=== PATIENT | male | born 1965 | race Caucasian/White ===

== ENCOUNTER → 2016-12-11 | Outpatient (CLI) | payer OTHER ==
[2016-12-11 16:07] LABS: MEAN CORPUSCULAR HEMOGLOBIN 29.6 pg (27.0-33.0); MEAN CORPUSCULAR HGB CONC 35.1 g/dl (32.0-36.5); MEAN CORPUSCULAR VOLUME 84.3 fl (80.0-96.0); RED CELL DISTRIBUTION WIDTH 13.1 % (11.5-14.5); WHITE BLOOD COUNT 8.4 K/mm3 (4.0-10.0)
[2016-12-11 16:39] LABS: ALBUMIN 3.7 GM/DL (3.2-5.2); ALBUMIN/GLOBULIN RATIO 1.03 (1.00-1.93); ALKALINE PHOSPHATASE 76 U/L (45-117); ALT/SGPT 41 U/L (12-78); ANION GAP 10 MEQ/L (8-16); AST/SGOT 25 U/L (15-37); BILIRUBIN,TOTAL 0.5 MG/DL (0.2-1.0); BLOOD UREA NITROGEN 20 MG/DL (7-18); CALCIUM LEVEL 9.1 MG/DL (8.5-10.1); CARBON DIOXIDE LEVEL 28 MEQ/L (21-32); CHLORIDE LEVEL 97 MEQ/L (98-107); CHOLESTEROL LEVEL 115 MG/DL (<200); GLOMERULAR FILTRATION RATE > 60.0 (>60); GLUCOSE, FASTING 200 MG/DL (70-105); POTASSIUM SERUM 4.1 MEQ/L (3.5-5.1); SODIUM LEVEL 135 MEQ/L (136-145); TOTAL PROTEIN 7.3 GM/DL (6.4-8.2); TRIGLYCERIDES LEVEL 262 MG/DL (<150)
== END ==
LOC: M LAB 15:02
PROVIDERS: ATTEND Family Medicine
DX: I10 Essential (primary) hypertension (principal); R53.83 Other fatigue

== ENCOUNTER → 2017-02-20 | Outpatient (CLI) | payer OTHER | LOC: M LAB 08:25 | PROVIDERS: ATTEND Family Medicine | DX: R19.7 Diarrhea, unspecified (principal) ==

== ENCOUNTER → 2017-07-01 | Outpatient (CLI) | payer OTHER ==
--- NOTE | 2017-07-01 12:13 | REP ---
Clinical: Hypertension . Comparison: 05/21/2013 . Technique: PA and lateral. Findings: The mediastinum and cardiac silhouette are normal. The lung davis are clear and without acute consolidation, effusion, or pneumothorax. The skeletal structures are intact and normal. Impression: 1. No acute cardiopulmonary process. Signed by Walter Gann MD 07/01/2017 12:04 P
[2017-07-01 12:18] LABS: MEAN CORPUSCULAR HEMOGLOBIN 29.3 pg (27.0-33.0); MEAN CORPUSCULAR VOLUME 83.5 fl (80.0-96.0); PLATELET COUNT, AUTOMATED 278 10^3/uL (150-450); RED CELL DISTRIBUTION WIDTH 12.7 % (11.5-14.5); WHITE BLOOD COUNT 8.9 10^3/uL (4.0-10.0)
[2017-07-01 12:31] LABS: ALBUMIN 3.8 GM/DL (3.2-5.2); ALBUMIN/GLOBULIN RATIO 1.15 (1.00-1.93); ALKALINE PHOSPHATASE 73 U/L (45-117); ALT/SGPT 27 U/L (12-78); ANION GAP 9 MEQ/L (8-16); AST/SGOT 14 U/L (7-37); BILIRUBIN,TOTAL 0.5 MG/DL (0.2-1.0); BLOOD UREA NITROGEN 30 MG/DL (7-18); CALCIUM LEVEL 9.6 MG/DL (8.5-10.1); CARBON DIOXIDE LEVEL 28 MEQ/L (21-32); CHLORIDE LEVEL 102 MEQ/L (98-107); CHOLESTEROL LEVEL 126 MG/DL (<200); CREATININE FOR GFR 0.95 MG/DL (0.70-1.30); GLOMERULAR FILTRATION RATE > 60.0 (>56); GLUCOSE, FASTING 231 MG/DL (70-105); POTASSIUM SERUM 4.9 MEQ/L (3.5-5.1); SODIUM LEVEL 139 MEQ/L (136-145); TOTAL PROTEIN 7.1 GM/DL (6.4-8.2); TRIGLYCERIDES LEVEL 107 MG/DL (<150)
--- NOTE | 2017-07-01 14:31 | ECGEPIP ---
Stationary ECG Study [facility] Test Date: 2017-07-01 Pat Name: MILLA NI Department: Room: - Gender: M Vat House Supervisor: BROOKE : 1965 Requested By: Nikky Gibbons Order Number: [id number] Reading MD: Tessa Salazar Measurements Intervals [place] Rate: 68 P: 58 FL: 142 QRS: 12 QRSD: 86 T: 40 QT: 375 QTc: 399 Interpretive Statements SINUS RHYTHM BORDERLINE LOW VOLTAGE SIMILAR RO 05/21/13 Electronically Signed On 07-01-2017 14:31:28 EST by Tessa Salazar
== END ==
LOC: M LAB 11:22
PROVIDERS: ATTEND Family Medicine
DX: I10 Essential (primary) hypertension (principal); E11.9 Type 2 diabetes mellitus without complications; R53.83 Other fatigue

== ENCOUNTER → 2017-11-01 | Outpatient (CLI) | payer OTHER | LOC: M RAD 09:38 | DX: M79.601 Pain in right arm (principal) | CPT/HCPCS: 73060 ==

== ENCOUNTER → 2018-07-17 | Outpatient (CLI) | payer OTHER ==
[2018-07-17 12:03] LABS: HEMOGLOBIN A1c 12.2 %
== END ==
LOC: M LAB 10:31
PROVIDERS: ATTEND Family Medicine
DX: E11.9 Type 2 diabetes mellitus without complications (principal)

== ENCOUNTER → 2018-09-27 | Outpatient (CLI) | payer OTHER ==
[~2018-09-27] MED LIST: BYST10TA2; FARX1TAB3; LEVO175T2; LOSA100T50; METF10004; ROSU10TA5
[2018-09-27 10:31] LABS: HEMOGLOBIN A1c 10.4 %
== END ==
LOC: M LAB 08:28
PROVIDERS: ATTEND Family Medicine
DX: E11.9 Type 2 diabetes mellitus without complications (principal)

== ENCOUNTER 2018-09-30 11:37 | Emergency (ER) | payer OTHER ==
[~2018-09-30] VITALS: Ht 175.3 cm; Wt 84.5 kg
[2018-09-30] MEDS ORDERED: ROSU10TA5 (11:45)
[2018-09-30] MEDS ORDERED: LEVO175T2 (11:45)
[2018-09-30] MEDS ORDERED: FARX1TAB3 (11:45)
[2018-09-30] MEDS ORDERED: METF10004 (11:45)
[2018-09-30] MEDS ORDERED: BYST10TA2 (11:45)
[2018-09-30] MEDS ORDERED: LOSA100T50 (11:45)
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
[2018-09-30 14:02] VITALS: BP 128/88
== END 2018-09-30 14:03 | disposition home or self-care (01) ==
LOC: M ED 11:37
DX: S80.02XA Contusion of left knee, initial encounter (principal); S80.812A Abrasion, left lower leg, initial encounter; V44.5XXA Car driver injured in collision with heavy transport vehicle or bus in traffic accident, initial encounter; Y92.410 Unspecified street and highway as the place of occurrence of the external cause; E11.9 Type 2 diabetes mellitus without complications; Z86.73 Personal history of transient ischemic attack (TIA), and cerebral infarction without residual deficits; Z79.899 Other long term (current) drug therapy; Z79.84 Long term (current) use of oral hypoglycemic drugs

== ENCOUNTER → 2018-12-20 | Outpatient (CLI) | payer OTHER ==
[2018-12-20 11:33] LABS: HEMOGLOBIN A1c 8.9 %
== END ==
LOC: M LAB 08:55
PROVIDERS: ATTEND Family Medicine
DX: E11.9 Type 2 diabetes mellitus without complications (principal)

== ENCOUNTER → 2020-03-04 | Outpatient (CLI) | payer OTHER ==
[~2020-03-04] MED LIST changes: -ROSU10TA5; +ROSU10TA6
== END ==
LOC: M LAB 10:24
PROVIDERS: ATTEND Internal Medicine Endocrinology, Diabetes & Metabolism
DX: E11.65 Type 2 diabetes mellitus with hyperglycemia (principal)

== ENCOUNTER → 2020-03-04 | Outpatient (CLI) | payer OTHER ==
[2020-04-09 07:32] LABS: HEMATOCRIT 46.6 % (42.0-52.0); HEMOGLOBIN 15.2 g/dl (13.5-17.5); MEAN CORPUSCULAR HEMOGLOBIN 28.8 pg (27.0-33.0); MEAN CORPUSCULAR HGB CONC 32.6 g/dl (32.0-36.5); MEAN CORPUSCULAR VOLUME 88.3 fl (80.0-96.0); PLATELET COUNT, AUTOMATED 274 10^3/uL (150-450); RED BLOOD COUNT 5.28 10^6/uL (4.30-6.10); WHITE BLOOD COUNT 7.2 10^3/uL (4.0-10.0)
[2020-05-05 02:17] LABS: ALBUMIN 3.5 GM/DL (3.2-5.2); ALT/SGPT 35 U/L (12-78); BILIRUBIN,TOTAL 0.2 MG/DL (0.2-1.0); BLOOD UREA NITROGEN 28 MG/DL (7-18); CALCIUM LEVEL 9.6 MG/DL (8.5-10.1); CARBON DIOXIDE LEVEL 29 MEQ/L (21-32); CHLORIDE LEVEL 107 MEQ/L (98-107); GLOMERULAR FILTRATION RATE > 60.0 (>56); GLUCOSE, FASTING 127 MG/DL (70-100); SODIUM LEVEL 141 MEQ/L (136-145); TESTOSTERONE 500 NG/DL (241-827); THYROID STIMULATING HORMONE 0.338 uIU/ML (0.358-3.740); TOTAL 25(OH) VITAMIN D 15.7 NG/ML (30.0-100.0)
== END ==
LOC: M LAB 10:24
PROVIDERS: ATTEND Family Medicine
DX: E11.9 Type 2 diabetes mellitus without complications (principal); I10 Essential (primary) hypertension; R97.20 Elevated prostate specific antigen [PSA]; E03.9 Hypothyroidism, unspecified
CPT/HCPCS: 36415; 80053; 80061; 82306; 83036; 84403; 84443; 85027; G0103

== ENCOUNTER → 2020-06-17 | Outpatient (REF) | payer OTHER ==
[2020-06-17 18:37] LABS: CREATININE, URINE 48.4 MG/DL; MAU/CREAT RATIO 1014.4 MCG/MG (0.0-30.0)
== END ==
LOC: M LAB REF 17:08
PROVIDERS: ATTEND Internal Medicine Endocrinology, Diabetes & Metabolism
DX: E11.65 Type 2 diabetes mellitus with hyperglycemia (principal)

== ENCOUNTER → 2020-09-05 | Outpatient (CLI) | payer OTHER ==
[~2020-09-05] MED LIST changes: -BYST10TA2; +BYST10TA2 PO; -FARX1TAB3; +FARX1TAB3 PO; -LEVO175T2; +LEVO175T2 PO; -LOSA100T50; +LOSA100T50 PO; -METF10004; +METF10004 PO; +OZEM2INJ2 PO; +PIOG1TAB36 PO; +REPA1TAB4 PO; -ROSU10TA6; +ROSU10TA6 PO; +VITA50005 PO
== END ==
LOC: M LABSMTC 09:31
PROVIDERS: ATTEND Anesthesiology
DX: Z01.812 Encounter for preprocedural laboratory examination (principal); Z20.822 Contact with and (suspected) exposure to COVID-19

== ENCOUNTER 2020-09-09 06:42 | Day surgery (SDC) | payer OTHER ==
[~2020-09-09] VITALS: Ht 175.3 cm; Wt 88.8 kg
--- OUTSIDE RECORDS SUMMARY | 2020-09-09 06:47 | CCD | Continuity of Care Document ---
Author Author Boris DELGADO MD Organization Unknown Address [address] [place] [address], [facility] [address] [place] [address] Phone [phone] Care Team Providers Care Fiberglass Technician Name Role Phone Shai Paige MD [facility] [phone] Problems Active Problems Provider Date Essential hypertension Onset: 10/22/2018 Social History Type Date Description Comments Sex Unknown Tobacco Use Start: Unknown Never Smoked Cigarettes ETOH Use Rarely consumes alcohol Tobacco Use Start: Unknown Patient has never smoked Smoking Status Reviewed: 03/11/20 Patient has never smoked Allergies, Adverse Reactions, Alerts Description No Information Available Medications Active Medications SIG Qnty Indications Ordering Provide r Date Repaglinide 1mg Tablets take 1 tablets by mouth once daily with breakfast 90tabs E11.65 Esmer Delgado MD 06/17/2020 Pioglitazone HCL 15mg Tablets 1 by mouth every day- due January 90tabs E11.65 Esmer Delgado MD 05/15/20 19 Ozempic (1 MG/Dose) 2mg/1.5ML Solution Pen-Inject Inject 1MG Weekly Under The Skin 3units E11.65 Esmer Delgado MD 05/15/2019 Freestyle Jatin 14 Day/[place]/Flash Antonia toring System Device use to test blood sugars daily 1units E11.65 Esmer Delgado MD 01/26/2019 Freestyle Jatin 14 Day/Sensor/Flash Antonia toring System Misc use as directed every 14 day 6units E11.65 Esmer Delgado MD 01/26/2019 Metformin HCL ER 500mg Tablets ER 24HR 4 tab by mouth daily 360tabs Esmer Delgado MD 9 Rosuvastatin Calcium 10mg Tablets 1 by mouth every day Unknown Bystolic 10mg Tablets 1 po qd Unknown Naproxen Sodium 550mg Tablets 1 by mouth twice a day with food prn Unknown Levothyroxine Sodium 175mcg Tablet s take 1 tab by mouth daily. Unknown Losartan Potassium 100mg Tablets 1 by mouth every day Unknown Farxiga 10mg Tablets take one tablet by mouth every day 90tabs E11.65 Mayte Del Valle, ALEN Stomach Relief 262mg Chewtabs prn Unknown Diphenoxylate-Atropine 2.5-0.025mg Tablets 1 po bid prn Unknown Sucralfate 1gm Tablets Take One Tablet By Mouth Three Times A Day, prn Unknown Immunizations Description No Information Available Vital Signs Date Vital Result Comment 06/17/2020 2:41pm BP Systolic 126 mmHg BP Diastolic 70 mmHg Heart Rate 80 /min Body Temperature 97.1 F Height 68.9 inches 5'8.90" Weight 195.00 lb BMI (Body Mass Index) 28.9 kg/m2 O2 % BldC Oximetry 99 % 03/11/2020 3:08pm BP Systolic 132 mmHg BP Diastolic 80 mmHg Heart Rate 85 /min Height 68.9 inches 5'8.90" Weight 192.12 lb BMI (Body Mass Index) 28.5 kg/m2 O2 % BldC Oximetry 97 % Results Test Acquired Date Facility Test Result H/L Range Note Laboratory test finding 06/17/2020 In House Glucose 141 Hemoglobin A1c 7.5 Laboratory test finding 03/11/2020 In House Hemoglobin A1c 7.6 Glucose 177 Urine Micro/Creat Ratio Random 03/04/2020 [facility] [address] [place] [address] (315)- - Creatinine, Urine TNP mg/dL Normal Malb Urine Siemens 986.0 mg/L Normal [place]/Creat Ratio TNP MCG/MG Normal 0.0-30.0 Complete Blood Count 03/04/2020 [facility] entr [address] [place] [address] (315)- - White Blood Count 7.2 10 Normal 4.0-10.0 Red Blood Count 5.28 10 Normal 4.30-6.10 Hemoglobin 15.2 g/dL Normal 13.5-17.5 Hematocrit 46.6 % Normal 42.0-52.0 Mean Corpuscular Volume 88.3 fl Normal 80.0-96.0 Mean Corpuscular Hemoglobin 28.8 pg Normal 27.0-33.0 Mean Corpuscular HGB Conc 32.6 g/dL Normal 32.0-36.5 Red Cell Distribution Width 13.3 % Normal 11.5-14.5 Platelet Count, Automated 274 10 Normal 150-450 Nucleated Red Blood Cell % 0.0 % Normal 0-0 Hemoglobin A1c 03/04/2020 [facility] ntr [address] [place] [address] (315)- - Hemoglobin A1c TNP % Normal 1 Estimated Average Glucose TNP mg/dL Normal 60-110 Comprehensive Metabolic Profil 03/04/2020 [facility] [address] [place] [address] (315)- - Glucose, Fasting 127 mg/dL High 70-100 Blood Urea Nitrogen 28 mg/dL High 7-18 Creatinine For GFR 1.00 mg/dL Normal 0.70-1.30 Glomerular Filtration Rate > 60.0 Normal >56 2 Sodium Level 141 mEq/L Normal 136-145 Potassium Serum 5.0 mEq/L Normal 3.5-5.1 Chloride Level 107 mEq/L Normal 98-107 Carbon Dioxide Level 29 mEq/L Normal 21-32 Anion Gap 5 mEq/L Low 8-16 Calcium Level 9.6 mg/dL Normal 8.5-10.1 Ast/Sgot 18 U/L Normal 7-37 Alt/SGPT 35 U/L Normal 12-78 Alkaline Phosphatase 71 U/L Normal 45-117 Bilirubin,Total 0.2 mg/dL Normal 0.2-1.0 Total Protein 7.0 GM/DL Normal 6.4-8.2 Albumin 3.5 GM/DL Normal 3.2-5.2 Albumin/Globulin Ratio 1.0 Normal Lipid Panel 03/04/2020 [facility] n[facility] [address] [place] [address] (315)- - Triglycerides Level TNP mg/dL Normal <150 Cholesterol Level TNP mg/dL Normal <200 HDL Cholesterol TNP mg/dL Normal >40 LDL Cholesterol TNP mg/dL Normal <100 Non-HDL-C TNP mg/dL Normal Cholesterol Risk Ratio TNP Normal <5 Laboratory test finding 03/04/2020 [facility] l Cent[facility] [address] [place] [address] (315)- - Testosterone 500 ng/dL Normal 241-827 3 PSA Screening 0.59 NG/ML Normal < 4.00 4 Thyroid Stimulating Hormone 0.338 uIU/ML Low 0.358-3.740 5 Total 25(Oh) Vitamin D 15.7 NG/ML Low 30.0-100.0 6 1 DOWNTIME - NOT PERFORMED 2 Units are mL/min/1.73 m2 Chronic Kidney Disease Staging per NKF: Stage I & II GFR >=60 Normal to Mildly Decreased Stage III GFR 30-59 Moderately Decreased Stage IV GFR 15-29 Severely Decreased Stage V GFR <15 Very Little GFR Left ESRD GFR <15 on REPRODUCTION MACHINE LOADER 3 NORMAL RANGES ARE FOR ADULT FEMALES (OVER 15 YRS) AND MALES (OVER 19 YRS). FOR PEDIATRIC RANGES PLE ASE CONSULT LITERATURE. 4 The PSA assay is performed o n the Siemens [place] analyzer by LOCI sandwich chemiluminescent immunoassay and should not be compared interchangeably with other methods. It should not be used alone as a screening test or diagnosis for the presence or absence of malignant disease. Predictions of disease recurrence should not be based solely on values obtained from serial patient serum values. 5 note:<nlbl:demographic_chang ed> 6 note:<nlbl:demographic_chang ed> Procedures Date Code Description Status 06/17/2020 492399977 Diabetic Foot Exam Completed 03/11/2020 97222 Amb Glucose Monitoring Interpret ation And Report Completed Medical Devices Description No Information Available Encounters Type Date Location Provider Dx Diagnosis Office Visit 03/11/2020 3:15p DR. Esmer Del Valle NP E1 1.65 Type 2 diabetes mellitus with hyperglycemia Assessments Date Code Description Provider 06/17/2020 E11.65 Type 2 diabetes mellitus with hy perglycemia Esmer Delgado MD 03/11/2020 E11.65 Type 2 diabetes mellitus with hy perglycemia Mayte Del Valle NP Plan of Treatment Future Appointment(s):* 09/26/2020 11:45 am - Esmer Delgado MD at DR. Esmer Delgado 06/17/2020 - Esmer Delgado MD* E11.65 Type 2 diabetes mellitus with hyperglycemia* New Medication:* Repaglinide 1 mg - take 1 tablets by mouth once daily with breakfast * New Labs:* Urine Micro/Creat Ratio Random, Scheduled: 06/17/20 * Comments:* 06/17/2020- in office A1c= 7.5% bs=7.6% (7.4%, 8% 8.4%, 8.9%, 10.4%, 12%)Random HN=175ix bs is spiking a lot++yesterday i had cereal and fruit and BS went to 300Freestyle jatin CGM downloaded: 71% target, 27% high, 46% active wear, Ave glucoseData started 02/08/2020Patient wants to avoid insulin so he does not require a driving waiver.Current medication: Metformin ER 500 2 tabs po bid, Farxiga 10 mg daily, Ozempic 1.0 mg, Pioglitazone 15 mgNext step would be to try insulin or sulfonylurea. However he has had diabetes for over 20 years. He is concerned about a DOT waiver. Pt wishes not to start any new medication. Pt feels that he could do better with his diet. Pt had been experiencing abdominal pain prior to and after bowel movement for past 2 years- states this has subsided- due for Colonosopy aug 11.Also has experienced diarrhea.- that went away No med changes for now. Will recheck in 3 months * Follow up:* 3 months CBF - survey Functional Status Description No Information Available Mental Status Description No Information Available Referrals Description No Information Available
--- OUTSIDE RECORDS SUMMARY | 2020-09-09 06:47 | CCD | Continuity of Care Document ---
Author Author Sotero HUTNER M.D. Organization Unknown Address [address] [place] [address] Phone [phone] Care Team Providers Care Forge Operator Helper Name Role Phone Shai Paige M.D. AUTM [phone] Problems Active Problems Provider Date Screening for malignant neoplasm of colon Chilo masters M.D. Onset: 08/11/2020 Social History Type Date Description Comments Sex Unknown ETOH Use Denies alcohol use Tobacco Use Start: Unknown Patient has never smoked Allergies, Adverse Reactions, Alerts Description No Known Drug Allergies Medications Active Medications SIG Qnty Indications Ordering Provide r Date Sutab [id number] Tablets as directed 1box Chilo Hunter M.D. 08/11/2020 Farxiga 10mg Tablets Take One Tablet By Mouth Every Day Maximum Daily Dose 1 Tablet Un known Metformin HCL ER 500mg Tablets ER 24HR Take Four Tablets By Mouth Every Day Unknown Bystolic 10mg Tablets Take One Tablet By Mouth Every Day Unknown Ozempic (1 MG/Dose) 2mg/1.5ML Solution Pen-Inject Inject 1MG Subcutaneously Once A Week Unk nown Repaglinide 1mg Tablets Take One Tablet By Mouth Every Day With Breakfast Maximum Daily Dose One Tablet Unknown Vitamin D (Ergocalciferol) 1.25mg (14307 Ut) Capsules Take 1 Capsule By Mouth Once A Week Unkno wn Rosuvastatin Calcium 10mg Tablets Take One Tablet By Mouth Every Day Unknown Losartan Potassium 100mg Tablets Take One Tablet By Mouth Every Day Unknown Levothyroxine Sodium 175mcg Tablet s Take One Tablet By Mouth Every Day Unknown Pioglitazone HCL 15mg Tablets Take One Tablet By Mouth Every Day Unknown Immunizations Description No Information Available Vital Signs Date Vital Result Comment 08/11/2020 10:29am Height 69 inches 5'9" Weight 196.00 lb BP Systolic 126 mmHg BP Diastolic 87 mmHg Heart Rate 58 /min BMI (Body Mass Index) 28.9 kg/m2 Weight 88.906 kg Body Temperature 97.3 F Results Description No Information Available Procedures Description No Information Available Medical Devices Description No Information Available Encounters Type Date Location Provider Dx Diagnosis Office Visit 08/11/2020 10:00a Main Office Chilo Hunter M.D. Z 12.11 Encounter for screening for malignant neoplasm of colon Assessments Date Code Description Provider 08/11/2020 Z12.11 Encounter for screening for kourtney gnant neoplasm of colon Chilo Hunter M.D. Plan of Treatment Future Appointment(s):* 09/02/2020 6:00 am - Christine at Main Office * 09/09/2020 8:15 am - Chilo Hunter M.D. at Main Office 08/11/2020 - Chilo Hunter M.D.* Z12.11 Encounter for screening for malignant neoplasm of colon* Comments:* 55 yo wm who presents for a screening colonoscopy. No c/o abdominal pain, weight loss, change in bowel habits, or rectal bleeding. No family h/o colon cancer. No h/o chest pain, or sob. Plan:1.Schedule patient for a colonoscopy.2.Informed consent given to the patient.3.Pt. advised to stop aspirin,plavix, and anticoagulants at least 3 to 7 days prior to the procedure. Functional Status Description No Information Available Mental Status Description No Information Available Referrals Description No Information Available
--- OUTSIDE RECORDS SUMMARY | 2020-09-09 06:47 | CCD ---
Continuity of Care Document (CCD) Created on: 06/21/2020 Agusto Boris External Reference #: [id number] : 1965 Sex: Male Author Author Boris DELGADO MD Organization Unknown Address [address] [place] [address], [facility] [address] [place] [address] Phone [phone] Care Team Providers Care Electronic Prepress Technician Name Role Phone Shai Paige MD [facility] [phone] Problems Active Problems Provider Date Essential hypertension [...] Tablets 1 by mouth every day- due january 90tabs E11.65 Esmer Delgado MD 05/15/20 19 Ozempic (1 MG/Dose) 2mg/1.5ML Solution Pen-Inject inject 1mg weekly under the skin 3units E11.65 Esmer Delgado MD 05/15/2019 Freestyle Jatin 14 Day/[place]/Flash Antonia toring System Device use to test [...] Date Facility Test Result H/L Range Note Urine Micro/Creat Ratio Random 06/17/[address] [address] (315)- - Creatinine, Urine 48.4 mg/dL Normal Malb Urine Siemens 491.0 mg/L Normal [place]/Creat Ratio 1014.4 MCG/MG High 0.0-30.0 1 Laboratory test finding 06/17/2020 In House Glucose 141 Hemoglobin A1c 7.5 Laboratory test finding 03/11/2020 In House Hemoglobin A1c 7.6 Glucose 177 Urine Micro/Creat Ratio Random 03/04/[address] [address] (315)- - Creatinine, Urine TNP mg/dL Normal Malb Urine Siemens 986.0 mg/L Normal [place]/Creat Ratio TNP MCG/MG Normal 0.0-30.0 Complete Blood Count 03/04/2020 [facility] entr [address] [place] [address] (315)- - White Blood Count 7.2 10 [...] 0.0 % Normal 0-0 Hemoglobin A1c 03/04/2020 [facility] ntr [address] [place] [address] (315)- - Hemoglobin A1c TNP % Normal 2 Estimated Average Glucose TNP mg/dL Normal 60-110 Comprehensive Metabolic Profil 03/04/2020 [facility] [address] [place] [address] (315)- - Glucose, Fasting 127 mg/dL High 70-100 Blood Urea Nitrogen 28 mg/dL High 7-18 Creatinine For GFR 1.00 mg/dL Normal 0.70-1.30 Glomerular Filtration Rate > 60.0 Normal >56 3 Sodium Level 141 mEq/L Normal 136-145 Potassium [...] Albumin/Globulin Ratio 1.0 Normal Lipid Panel 03/04/2020 [facility] ntr [address] [place] [address] (315)- - Triglycerides Level TNP mg/dL Normal <150 Cholesterol Level TNP mg/dL Normal <200 HDL Cholesterol TNP mg/dL Normal >40 LDL Cholesterol TNP mg/dL Normal <100 Non-HDL-C TNP mg/dL Normal Cholesterol Risk Ratio TNP Normal <5 Laboratory test finding 03/04/2020 [facility] Cent[facility] [address] [place] [address] (315)- - Testosterone 500 ng/dL Normal 241-827 4 PSA Screening 0.59 NG/ML Normal < 4.00 5 Thyroid Stimulating Hormone 0.338 uIU/ML Low 0.358-3.740 6 Total 25(Oh) Vitamin D 15.7 NG/ML Low 30.0-100.0 7 1 THE [place] DIABETES ASSOCI ATION STATES THAT MICROALBUMINURIA IS PRESENT IF THE MICROALBUMIN/CREATININE RATIO EXCEEDS 30 MCG/MG. THE THRESHOLD FOR CLINICAL ALBUMINURIA IS REACHED AT 300 MCG/MG. THE CLASSIFICATION OF A PATIENT SHOULD BE BASED UPON AT LEAST 2 OF 3 ABNORMAL RESULTS ON SPECIMENS COLLECTED WITHIN A 3 TO 6 MONTH TIME FRAME. 2 DOWNTIME - NOT PERFORMED 3 Units are mL/min/1.73 m2 Chronic Kidney Disease Staging per NKF: Stage I & II GFR >=60 Normal to Mildly Decreased Stage III GFR 30-59 Moderately Decreased Stage IV GFR 15-29 Severely Decreased Stage V GFR <15 Very Little GFR Left ESRD GFR <15 on PRODUCT MARKETING SPECIALIST 4 NORMAL RANGES ARE FOR ADULT FEMALES (OVER 15 YRS) AND MALES (OVER 19 YRS). FOR PEDIATRIC RANGES PLE ASE CONSULT LITERATURE. 5 The PSA assay is performed o n the Siemens [place] analyzer by LOCI sandwich chemiluminescent immunoassay and should not be compared interchangeably with other methods. It should not be used alone as a screening test or diagnosis for the presence or absence of malignant disease. Predictions of disease recurrence should not be based solely on values obtained from serial patient serum values. 6 note:<nlbl:demographic_chang ed> 7 note:<nlbl:demographic_chang ed> Procedures Date Code Description Status 06/17/2020 [id number] Diabetic Foot Exam Completed 03/11/2020 98147 Amb Glucose Monitoring Interpret ation And Report Completed Medical Devices Description No Information Available Encounters Type Date Location Provider Dx Diagnosis Office Visit 06/17/2020 2:30p DR. Esmer Delgado MD E 11.65 Type 2 diabetes mellitus with hyperglycemia Office Visit 03/11/2020 3:15p DR. 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,.Patient wants to avoid insulin so he does not require a driving waiver.Current medication: Metformin ER 500 2 tabs po bid, Farxiga 10 mg daily, Ozempic 1.0 mg, Pioglitazone 15 mgREC- start low dose repaglenide- low potential for hypoglycemia Pt had been experiencing abdominal pain prior to and after bowel movement for past 2 years- states this has subsided- due for Colonosopy aug 11.Also has experienced diarrhea.- that went away * Follow up:* 3 months CBF - survey Functional Status Description No Information Available Mental Status Description No Information Available Referrals Description No Information Available
--- OUTSIDE RECORDS SUMMARY | 2020-09-09 06:47 | CCD | Continuity of Care Document ---
Author Author Boris DELGADO MD Organization Unknown Address [address] [place] [address], [facility] [address] [place] [address] Phone [phone] Care Team Providers Care Transitional Nurse Name Role Phone Shai Paige MD [facility] [phone] Problems Active Problems Provider Date Essential hypertension [...] Esmer Delgado MD 05/15/2019 Freestyle Jatin 14 Day/[place]/Flash Antonia toring System Device use to test [...] Range Note Urine Micro/Creat Ratio Random 06/17/[address] [address] (315)- - Creatinine, Urine 48.4 mg/dL Normal Malb Urine Siemens 491.0 mg/L Normal [place]/Creat Ratio 1014.4 MCG/MG High 0.0-30.0 1 Laboratory test finding 06/17/2020 In House Glucose 141 Hemoglobin A1c 7.5 Laboratory test finding 03/11/2020 In House Hemoglobin A1c 7.6 Glucose 177 Urine Micro/Creat Ratio Random 03/04/[address] [address] (315)- - Creatinine, Urine TNP mg/dL Normal Malb Urine Siemens 986.0 mg/L Normal [place]/Creat Ratio TNP MCG/MG Normal 0.0-30.0 Complete Blood Count 03/04/2020 [facility] entr [address] [place] [address] (315)- - White Blood Count 7.2 10 [...] 0.0 % Normal 0-0 Hemoglobin A1c 03/04/2020 [facility] ntr [address] [place] [address] (315)- - Hemoglobin A1c TNP % Normal 2 Estimated Average Glucose TNP mg/dL Normal 60-110 Comprehensive Metabolic Profil 03/04/2020 [facility] [address] [place] [address] (315)- - Glucose, Fasting 127 mg/dL High [...] Albumin/Globulin Ratio 1.0 Normal Lipid Panel 03/04/2020 [facility] ntr [address] [place] [address] (315)- - Triglycerides Level TNP mg/dL Normal <150 Cholesterol Level TNP mg/dL Normal <200 HDL Cholesterol TNP mg/dL Normal >40 LDL Cholesterol TNP mg/dL Normal <100 Non-HDL-C TNP mg/dL Normal Cholesterol Risk Ratio TNP Normal <5 Laboratory test finding 03/04/2020 [facility] l Centr [address] [place] [address] (315)- - Testosterone 500 ng/dL Normal 241-827 4 PSA Screening 0.59 NG/ML Normal < 4.00 5 Thyroid Stimulating Hormone 0.338 uIU/ML Low 0.358-3.740 6 Total 25(Oh) Vitamin D 15.7 NG/ML Low 30.0-100.0 7 1 THE [place] DIABETES ASSOCI ATION STATES THAT MICROALBUMINURIA IS [...] Little GFR Left ESRD GFR <15 on CAR FERRY MASTER 4 NORMAL RANGES ARE FOR ADULT FEMALES (OVER 15 YRS) AND MALES (OVER 19 YRS). FOR PEDIATRIC RANGES PLE ASE CONSULT LITERATURE. 5 The PSA assay is performed o n the Siemens [place] analyzer by LOCI sandwich chemiluminescent immunoassay and [...] ed> Procedures Date Code Description Status 06/17/2020 [id number] Diabetic Foot Exam Completed 03/11/2020 02312 Amb Glucose Monitoring Interpret ation And Report Completed Medical Devices Description No Information Available Encounters Type Date Location Provider Dx Diagnosis Office Visit 03/11/2020 3:15p DR. 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
--- OUTSIDE RECORDS SUMMARY | 2020-09-09 06:47 | CCD | Continuity of Care Document ---
Author Author Sotero HUNTER M.D. Organization Unknown Address [address] [place] [address] Phone [phone] Care Team Providers Care Sales Contractor Name Role Phone Shai Paige M.D. AUTM [phone] Problems Active Problems Provider Date Screening for malignant neoplasm of colon Chilo masters M.D. Onset: 08/11/2020 Social History Type Date Description Comments Sex Unknown ETOH Use Denies alcohol use Tobacco Use Start: Unknown Patient has never smoked Allergies, Adverse Reactions, Alerts Description No Known Drug Allergies Medications Active Medications SIG Qnty Indications Ordering Provide r Date Sutab [id number] Tablets as directed 1box Chilo Hunter M.D. [...] One Tablet Unknown Vitamin D (Ergocalciferol) 1.25mg (87743 Ut) Capsules Take 1 Capsule By Mouth [...] Medical Devices Description No Information Available Encounters Description No Information Available Assessments Date Code Description Provider 08/11/2020 Z12.11 [...]
--- OUTSIDE RECORDS SUMMARY | 2020-09-09 06:47 | CCD | Continuity of Care Document ---
Author Author Boris DELGADO MD Organization Unknown Address [address] [place] [address], [facility] [address] [place] [address] Phone [phone] Care Team Providers Care Heating Equipment Installer Name Role Phone Shai Paige MD [facility] [phone] Problems Active Problems Provider Date Essential hypertension [...] Esmer Delgado MD 05/15/2019 Fre[facility] Jatin 14 Day/[place]/Flash Antonia toring System Device use to test [...] Glucose 177 Urine Micro/Creat Ratio Random 03/04/2020 [facility] [address] [place] [address] (315)- - Creatinine, Urine TNP mg/dL Normal Malb Urine Siemens 986.0 mg/L Normal [place]/Creat Ratio TNP MCG/MG Normal 0.0-30.0 Complete Blood Count 03/04/2020 [facility] entr [address] [place] [address] (315)- - White Blood Count 7.2 10 [...] 0.0 % Normal 0-0 Hemoglobin A1c 03/04/2020 [facility] ntr [address] [place] [address] (315)- - Hemoglobin A1c TNP % Normal 1 Estimated Average Glucose TNP mg/dL Normal 60-110 Comprehensive Metabolic Profil 03/04/2020 [facility] [address] [place] [address] (315)- - Glucose, Fasting 127 mg/dL High [...] Albumin/Globulin Ratio 1.0 Normal Lipid Panel 03/04/2020 [facility] n[facility] [address] [place] [address] (315)- - Triglycerides Level TNP mg/dL Normal <150 Cholesterol Level TNP mg/dL Normal <200 HDL Cholesterol TNP mg/dL Normal >40 LDL Cholesterol TNP mg/dL Normal <100 Non-HDL-C TNP mg/dL Normal Cholesterol Risk Ratio TNP Normal <5 Laboratory test finding 03/04/2020 [facility] [address] [place] [address] (315)- - Testosterone 500 ng/dL Normal 241-827 [...] Little GFR Left ESRD GFR <15 on UI APPLICATION DEVELOPER 3 NORMAL RANGES ARE FOR ADULT FEMALES (OVER 15 YRS) AND MALES (OVER 19 YRS). FOR PEDIATRIC RANGES PLE ASE CONSULT LITERATURE. 4 The PSA assay is performed o n the Siemens Essie analyzer by LOCI sandwich chemiluminescent immunoassay and [...] ed> Procedures Date Code Description Status 06/17/2020 [id number] Diabetic Foot Exam Completed 03/11/2020 52630 Amb Glucose Monitoring Interpret ation And Report [...] bs=7.6% (7.4%, 8% 8.4%, 8.9%, 10.4%, 12%)Random JR=266hb bs is spiking a lot++yesterday i had [...]
--- OUTSIDE RECORDS SUMMARY | 2020-09-09 06:48 | CCD ---
Author Author [facility] Organization [facility] Address Unknown Phone Unavailable Care Team Providers Care Camp Coordinator Name Role Phone Sima Hunter MD Unavailable Unavailable Sima Hunter MD Unavailable Unavailable Sima Hunter MD Unavailable Unavailable Sima Hnuter MD Unavailable Unavailable Sima Hunter MD Unavailable Unavailable Sima Hunter MD Unavailable Unavailable Sima Hunter MD Unavailable Unavailable Sima Hunter MD Unavailable Unavailable Sima Hunter MD Unavailable Unavailable Sima Hunter MD Unavailable Unavailable Sima Hunter MD Unavailable Unavailable Sima Hunter MD Unavailable Unavailable Sima Hunter MD Unavailable Unavailable Sima Hunter MD Unavailable Unavailable Sima Hunter MD Unavailable Unavailable Sima Hunter MD Unavailable Unavailable Sima Hunter MD Unavailable Unavailable Sima Hunter MD Unavailable Unavailable Sima Hunter MD Unavailable Unavailable Sima Hunter MD Unavailable Unavailable Sima Hunter MD Unavailable Unavailable Sima Hunter MD Unavailable Unavailable Sima Hunter MD Unavailable Unavailable Sima Hunter MD Unavailable Unavailable Sima Hunter MD Unavailable Unavailable Sima Hunter MD Unavailable Unavailable Sima Hunter MD Unavailable Unavailable Sima Hunter MD Unavailable Unavailable Sima Hunter MD Unavailable Unavailable Sima Hunter MD Unavailable Unavailable Sima Hunter MD Unavailable Unavailable Sima Hunter MD Unavailable Unavailable Sima Hunter MD Unavailable Unavailable Sima Hunter MD Unavailable Unavailable Sima Hunter MD Unavailable Unavailable Sima Hunter MD Unavailable Unavailable Sima Hunter MD Unavailable Unavailable Sima Hunter MD Unavailable Unavailable Sima Hunter MD Unavailable Unavailable Sima Hunter MD Unavailable Unavailable Sima Hunter MD Unavailable Unavailable Sima Hunter MD Unavailable Unavailable Sima Hunter MD Unavailable Unavailable Sima Hunter MD Unavailable Unavailable Sima Hunter MD Unavailable Unavailable Sima Hunter MD Unavailable Unavailable Sima Hunter MD Unavailable Unavailable Sima Hunter MD Unavailable Unavailable Sima Hunter MD Unavailable Unavailable Delta Delgado MD Unavailable Unavailable Delta Delgado MD Unavailable Unavailable Delta Delgado MD Unavailable Unavailable Delta Delgado MD Unavailable Unavailable Delta Delgado MD Unavailable Unavailable Delta Delgado MD Unavailable Unavailable Delta Delgado MD Unavailable Unavailable Delta Delgado MD Unavailable Unavailable Delta Delgado MD Unavailable Unavailable Delta Delgado MD Unavailable Unavailable Delta Delgado MD Unavailable Unavailable Delta Delgado MD Unavailable Unavailable Delta Delgado MD Unavailable Unavailable Delta Delgado MD Unavailable Unavailable Delta Delgado MD Unavailable Unavailable Delta Delgado MD Unavailable Unavailable Delta Delgado MD Unavailable Unavailable Delta Delgado MD Unavailable Unavailable Delta Delgado MD Unavailable Unavailable Delta Delgado MD Unavailable Unavailable Delta Delgado MD Unavailable Unavailable Delta Delgado MD Unavailable Unavailable Delta Delgado MD Unavailable Unavailable Delta Delgado MD Unavailable Unavailable Delta Delgado MD Unavailable Unavailable Delta Delgado MD Unavailable Unavailable Delta Delgado MD Unavailable Unavailable Delta Delgado MD Unavailable Unavailable Delta Delgado MD Unavailable Unavailable Delta Delgado MD Unavailable Unavailable Fish, B Esmer GEIGER Unavailable Unavailable Fish, B Esmer GEIGER Unavailable Unavailable Fish, B Esmer GEIGER Unavailable Unavailable Fish, B Esmer GEIGER Unavailable Unavailable Fish, B Esmer GEIGER Unavailable Unavailable Fish, B Esmer GEIGER Unavailable Unavailable Fish, B Esmer GEIGER Unavailable Unavailable Fish, B Esmer GEIGER Unavailable Unavailable Fish, B Esmer GEIGER Unavailable Unavailable Fish, B Esmer GEIGER Unavailable Unavailable Fish, B Esmer GEIGER Unavailable Unavailable Fish, B Esmer GEIGER Unavailable Unavailable Fish, B Esmer GEIGER Unavailable Unavailable Fish, B Esmer GEIGER Unavailable Unavailable Fish, B Esmer GEIGER Unavailable Unavailable Fish, B Esmer GEIGER Unavailable Unavailable Fish, B Esmer GEIGER Unavailable Unavailable Fish, B Esmer GEIGER Unavailable Unavailable Fish, B Esmer GEIGER Unavailable Unavailable Fish, B Esmer GEIGER Unavailable Unavailable Fish, B Esmer GEIGER Unavailable Unavailable Fish, B Esmer GEIGER Unavailable Unavailable Fish, B Esmer GEIGER Unavailable Unavailable Fish, B Esmer GEIGER Unavailable Unavailable Fish, B Esmer GEIGER Unavailable Unavailable Fish, B Esmer GEIGER Unavailable Unavailable Fish, B Esmer GEIGER Unavailable Unavailable Fish, B Esmer GEIGER Unavailable Unavailable Fish, B Esmer GEIGER Unavailable Unavailable Fish, B Esmer GEIGER Unavailable Unavailable Fish, B Esmer GEIGER Unavailable Unavailable Fish, B Esmer GEIGER Unavailable Unavailable Fish, B Esmer GEIGER Unavailable Unavailable Fish, B Esmer GEIGER Unavailable Unavailable COOK, B MORGAN HOOP MAKER MACHINE Unavailable Unavailable COOK, B MORGAN HOOP MAKER MACHINE Unavailable Unavailable COOK, B MORGAN HOOP MAKER MACHINE Unavailable Unavailable COOK, B MORGAN HOOP MAKER MACHINE Unavailable Unavailable COOK, B MORGAN HOOP MAKER MACHINE Unavailable Unavailable COOK, B MORGAN HOOP MAKER MACHINE Unavailable Unavailable COOK, B MORGAN HOOP MAKER MACHINE Unavailable Unavailable COOK, B MORGAN HOOP MAKER MACHINE Unavailable Unavailable COOK, B MORGAN HOOP MAKER MACHINE Unavailable Unavailable COOK, B MORGAN HOOP MAKER MACHINE Unavailable Unavailable COOK, B MORGAN HOOP MAKER MACHINE Unavailable Unavailable COOK, B MORGAN HOOP MAKER MACHINE Unavailable Unavailable COOK, B MORGAN HOOP MAKER MACHINE Unavailable Unavailable COOK, B MORGAN HOOP MAKER MACHINE Unavailable Unavailable COOK, B MORGAN HOOP MAKER MACHINE Unavailable Unavailable COOK, B MORGAN HOOP MAKER MACHINE Unavailable Unavailable COOK, B MORGAN HOOP MAKER MACHINE Unavailable Unavailable COOK, B MORGAN HOOP MAKER MACHINE Unavailable Unavailable COOK, B MORGAN HOOP MAKER MACHINE Unavailable Unavailable COOK, B MORGAN HOOP MAKER MACHINE Unavailable Unavailable COOK, B MORGAN HOOP MAKER MACHINE Unavailable Unavailable COOK, B MORGAN HOOP MAKER MACHINE Unavailable Unavailable COOK, B MORGAN HOOP MAKER MACHINE Unavailable Unavailable COOK, B MORGAN HOOP MAKER MACHINE Unavailable Unavailable COOK, B MORGAN HOOP MAKER MACHINE Unavailable Unavailable COOK, B MORGAN HOOP MAKER MACHINE Unavailable Unavailable COOK, B MORGAN HOOP MAKER MACHINE Unavailable Unavailable COOK, B MORGAN HOOP MAKER MACHINE Unavailable Unavailable COOK, B MORGAN HOOP MAKER MACHINE Unavailable Unavailable COOK, B MORGAN HOOP MAKER MACHINE Unavailable Unavailable COOK, B MORGAN HOOP MAKER MACHINE Unavailable Unavailable COOK, B MORGAN HOOP MAKER MACHINE Unavailable Unavailable COOK, B MORGAN HOOP MAKER MACHINE Unavailable Unavailable COOK, B MORGAN HOOP MAKER MACHINE Unavailable Unavailable COOK, B MORGAN HOOP MAKER MACHINE Unavailable Unavailable COOK, B MORGAN HOOP MAKER MACHINE Unavailable Unavailable COOK, B MORGAN HOOP MAKER MACHINE Unavailable Unavailable COOK, B MORGAN HOOP MAKER MACHINE Unavailable Unavailable COOK, B MORGAN HOOP MAKER MACHINE Unavailable Unavailable COOK, B MORGAN HOOP MAKER MACHINE Unavailable Unavailable COOK, B MORGAN HOOP MAKER MACHINE Unavailable Unavailable COOK, B MORGAN HOOP MAKER MACHINE Unavailable Unavailable COOK, B MORGAN HOOP MAKER MACHINE Unavailable Unavailable COOK, B MORGAN HOOP MAKER MACHINE Unavailable Unavailable COOK, B MORGAN HOOP MAKER MACHINE Unavailable Unavailable COOK, B MORGAN HOOP MAKER MACHINE Unavailable Unavailable COOK, B MORGAN HOOP MAKER MACHINE Unavailable Unavailable COOK, B MORGAN HOOP MAKER MACHINE Unavailable Unavailable COOK, B MORGAN HOOP MAKER MACHINE Unavailable Unavailable COOK, B MORGAN HOOP MAKER MACHINE Unavailable Unavailable COOK, B MORGAN HOOP MAKER MACHINE Unavailable Unavailable COOK, B MORGAN HOOP MAKER MACHINE Unavailable Unavailable COOK, B MORGAN HOOP MAKER MACHINE Unavailable Unavailable COOK, B MORGAN HOOP MAKER MACHINE Unavailable Unavailable COOK, B MORGAN HOOP MAKER MACHINE Unavailable Unavailable COOK, B MORGAN HOOP MAKER MACHINE Unavailable Unavailable COOK, B MORGAN HOOP MAKER MACHINE Unavailable Unavailable COOK, B MORGAN HOOP MAKER MACHINE Unavailable Unavailable COOK, B MORGAN HOOP MAKER MACHINE Unavailable Unavailable COOK, B MORGAN HOOP MAKER MACHINE Unavailable Unavailable COOK, B MORGAN HOOP MAKER MACHINE Unavailable Unavailable COOK, B MORGAN HOOP MAKER MACHINE Unavailable Unavailable COOK, B MORGAN HOOP MAKER MACHINE Unavailable Unavailable COOK, B MORGAN HOOP MAKER MACHINE Unavailable Unavailable Re-disclosure Warning The records that you are about to access may contain information from federally-assisted alcohol or drug abuse programs. If such information is present, then the following federally mandated warning applies: This information has been disclosed to you from records protected by federal confidentiality rules (42 CFR part 2). The federal rules prohibit you from making any further disclosure of this information unless further disclosure is expressly permitted by the written consent of the person to whom it pertains or as otherwise permitted by 42 CFR part 2. A general authorization for the release of medical or other information is NOT sufficient for this purpose. The Federal rules restrict any use of the information to criminally investigate or prosecute any alcohol or drug abuse patient.The records that you are about to access may contain highly sensitive health information, the redisclosure of which is protected by Article 27-F of the [facility] Public Health law. If you continue you may have access to information: Regarding HIV / AIDS; Provided by facilities licensed or operated by the [facility] Office of Mental Health; or Provided by the [facility] Office for People With Developmental Disabilities. If such information is present, then the following [facility] mandated warning applies: This information has been disclosed to you from confidential records which are protected by state law. State law prohibits you from making any further disclosure of this information without the specific written consent of the person to whom it pertains, or as otherwise permitted by law. Any unauthorized further disclosure in violation of state law may result in a fine or [place] [facility] sentence or both. A general authorization for the release of medical or other information is NOT sufficient authorization for further disc losure. Family History Family Member Name Family Member Gender Family Member Status Date o f Status Description Data Source(s) Unknown Male Problem [facility] ([facility]) Unknown Male Problem [facility] ([facility]) Encounters Encounter Providers Location Date Indications Data Source(s ) Outpatient Attender: Chilo Hunter MD Main Office 08/11/2020 09:00:00 AM EST [facility] ([facility]) Outpatient Attender: Esmer Delgado MD Physical Therapy 06/17 01:30:00 PM EST [facility] ([facility]) Outpatient Attender: MORGAN BERRIOS NP Physical Therapy 03/11/2020 0 3:15:00 PM EDT [facility] ([facility]) Outpatient Attender: Esmer Delgado MD Physical Therapy 12/03 03:30:00 PM EDT [facility] ([facility]) Outpatient Attender: Esmer Delgado MD Physical Therapy 09/04 01:30:00 PM EST [facility] ([facility]) Medications Medication Brand Name Start Date Product Form Dose Route Admi nistrative Instructions Pharmacy Instructions Status Indications Reaction Description Data Source(s) 1,250 mcg (50,000 unit) 09/03/2020 12:00:00 AM EST capsule 4 TAKE 1 CAPSULE BY MOUTH ONCE A WEEK TAKE 1 CAPSULE BY MOUTH ONCE A WEEK SOLD: 09/05/2020 [facility] 175 mcg 09/02/2020 12:00:00 AM EST tablet 30 TAKE ONE TABLET BY MOUTH EVERY DAY TAKE ONE TABLET BY MOUTH EVERY DAY SOLD: 09/02/2020 [facility] 500 mg 08/18/2020 12:00:00 AM EST tablet extended release 24 hr 120 TAKE FOUR TABLETS BY MOUTH EVERY DAY TAKE FOUR TABLETS BY MOUTH EVERY DAY SOLD: 08/18/2020 [facility] 1.479-0.188 gram 08/12/2020 12:00:00 AM EST tablet 24 USE DIRECTED USE DIRECTED SOLD: 08/12/2020 [facility] Sutab Sutab 08/11/2020 12:00:00 AM EST active [facility] ([facility]) 1 mg 08/10/2020 12:00:00 AM EST tablet 30 TAKE ONE TABLET BY MOUTH EVERY DAY WITH BREAKFAST TAKE ONE TABLET BY MOUTH EVERY DAY WITH BREAKFAST SOLD : 08/12/2020 [facility] 10 mg 08/08/2020 12:00:00 AM EST tablet 30 TAKE ONE TABLET BY MOUTH EVERY DAY MAXIMUM DAILY DOSE = 1 TABLET TAKE ONE TABLET BY MOUTH EVERY DAY MAXIM UM DAILY DOSE = 1 TABLET SOLD: 08/08/2020 [facility] pioglitazone 15 MG Oral Tablet PIOGLITAZONE HCL 08/05/2020 12:00 :00 AM EST tablet 30 TAKE ONE TABLET BY MOUTH EVERY D AY TAKE ONE TABLET BY MOUTH EVERY DAY SOLD: 08/08/2020 [facility] pioglitazone 15 MG Oral Tablet PIOGLITAZONE HCL 08/05/2020 12:00 :00 AM EST tablet 30 TAKE ONE TABLET BY MOUTH EVERY D AY TAKE ONE TABLET BY MOUTH EVERY DAY SOLD: 09/05/2020 [facility] 1 mg/dose (2 mg/1.5 mL) 06/28/2020 12:00:00 AM EST pen injec tor 3 INJECT 1MG SUBCUTANEOUSLY ONCE A WEEK INJECT 1MG SUBCUTANEOUSLY ONCE A WEEK SOLD: 08/01/2020 [facility] 1 mg/dose (2 mg/1.5 mL) 06/28/2020 12:00:00 AM EST pen injec tor 3 INJECT 1MG SUBCUTANEOUSLY ONCE A WEEK INJECT 1MG SUBCUTANEOUSLY ONCE A WEEK SOLD: 09/02/2020 [facility] 1 mg/dose (2 mg/1.5 mL) 06/28/2020 12:00:00 AM EST pen injec tor 3 INJECT 1MG SUBCUTANEOUSLY ONCE A WEEK INJECT 1MG SUBCUTANEOUSLY ONCE A WEEK SOLD: 07/01/2020 [facility] 100 mg 06/26/2020 12:00:00 AM EST tablet 30 TAKE ONE TABLET BY MOUTH EVERY DAY TAKE ONE TABLET BY MOUTH EVERY DAY SOLD: 08/15/2020 [facility] 100 mg 06/26/2020 12:00:00 AM EST tablet 30 TAKE ONE TABLET BY MOUTH EVERY DAY TAKE ONE TABLET BY MOUTH EVERY DAY SOLD: 07/01/2020 [facility] 10 mg 06/21/2020 12:00:00 AM EST tablet 30 TAKE ONE TABLET BY MOUTH EVERY DAY TAKE ONE TABLET BY MOUTH EVERY DAY SOLD: 06/23/2020 [facility] 10 mg 06/21/2020 12:00:00 AM EST tablet 30 TAKE ONE TABLET BY MOUTH EVERY DAY TAKE ONE TABLET BY MOUTH EVERY DAY SOLD: 08/12/2020 [facility] 10 mg 06/20/2020 12:00:00 AM EST tablet 30 TAKE ONE TABLET BY MOUTH EVERY DAY TAKE ONE TABLET BY MOUTH EVERY DAY SOLD: 07/26/2020 [facility] 10 mg 06/20/2020 12:00:00 AM EST tablet 30 TAKE ONE TABLET BY MOUTH EVERY DAY TAKE ONE TABLET BY MOUTH EVERY DAY SOLD: 06/20/2020 [facility] 1,250 mcg (50,000 unit) 06/20/2020 12:00:00 AM EST capsule 4 TAKE 1 CAPSULE BY MOUTH ONCE A WEEK TAKE 1 CAPSULE BY MOUTH ONCE A WEEK SOLD: 06/20/2020 [facility] 1,250 mcg (50,000 unit) 06/20/2020 12:00:00 AM EST capsule 4 TAKE 1 CAPSULE BY MOUTH ONCE A WEEK TAKE 1 CAPSULE BY MOUTH ONCE A WEEK SOLD: 08/08/2020 [facility] 1 mg 06/18/2020 12:00:00 AM EST tablet 30 TAKE ONE TABLET BY MOUTH EVERY DAY WITH BREAKFAST MAXIMUM DAILY DOSE = ONE TABLET TAKE ONE TABLET BY MOUTH EVERY DAY WITH BREAKFAST MAXIMUM DAILY DOSE = ONE TABLET SOLD: 07/18/2020 [facility] 1 mg 06/18/2020 12:00:00 AM EST tablet 30 TAKE ONE TABLET BY MOUTH EVERY DAY WITH BREAKFAST MAXIMUM DAILY DOSE = ONE TABLET TAKE ONE TABLET BY MOUTH EVERY DAY WITH BREAKFAST MAXIMUM DAILY DOSE = ONE TABLET SOLD: 09/05/2020 [facility] 1 mg 06/18/2020 12:00:00 AM EST tablet 30 TAKE ONE TABLET BY MOUTH EVERY DAY WITH BREAKFAST MAXIMUM DAILY DOSE = ONE TABLET TAKE ONE TABLET BY MOUTH EVERY DAY WITH BREAKFAST MAXIMUM DAILY DOSE = ONE TABLET SOLD: 06/20/2020 [facility] repaglinide 1 MG Oral Tablet Repaglinide 06/17/2020 12:00:00 AM EST ORAL active [facility] ([facility]) 175 mcg 06/06/2020 12:00:00 AM EST tablet 30 TAKE ONE TABLET BY MOUTH EVERY DAY TAKE ONE TABLET BY MOUTH EVERY DAY SOLD: 08/05/2020 [facility] 175 mcg 06/06/2020 12:00:00 AM EST tablet 30 TAKE ONE TABLET BY MOUTH EVERY DAY TAKE ONE TABLET BY MOUTH EVERY DAY SOLD: 06/06/2020 [facility] 175 mcg 06/06/2020 12:00:00 AM EST tablet 30 TAKE ONE TABLET BY MOUTH EVERY DAY TAKE ONE TABLET BY MOUTH EVERY DAY SOLD: 07/07/2020 [facility] 1 mg/dose (2 mg/1.5 mL) 06/04/2020 12:00:00 AM EDT pen injec tor 3 INJECT 1 MG WEEKLY UNDER THE SKIN INJECT 1 MG WEEKLY UNDER THE SKIN SOLD: 06/06/2020 [facility] 10 mg 04/21/2020 12:00:00 AM EDT tablet 30 TAKE ONE TABLET BY MOUTH DAILY MAXIMUM DAILY DOSE = 1 TAKE ONE TABLET BY MOUTH DAILY MAXIMUM DAILY DOSE = 1 SOLD: 04/21/2020 [facility] 10 mg 04/21/2020 12:00:00 AM EDT tablet 30 TAKE ONE TABLET BY MOUTH DAILY MAXIMUM DAILY DOSE = 1 TAKE ONE TABLET BY MOUTH DAILY MAXIMUM DAILY DOSE = 1 SOLD: 06/18/2020 [facility] 10 mg 04/21/2020 12:00:00 AM EDT tablet 30 TAKE ONE TABLET BY MOUTH DAILY MAXIMUM DAILY DOSE = 1 TAKE ONE TABLET BY MOUTH DAILY MAXIMUM DAILY DOSE = 1 SOLD: 09/02/2020 [facility] 10 mg 04/21/2020 12:00:00 AM EDT tablet 30 TAKE ONE TABLET BY MOUTH DAILY MAXIMUM DAILY DOSE = 1 TAKE ONE TABLET BY MOUTH DAILY MAXIMUM DAILY DOSE = 1 SOLD: 05/20/2020 [facility] 10 mg 04/21/2020 12:00:00 AM EDT tablet 30 TAKE ONE TABLET BY MOUTH DAILY MAXIMUM DAILY DOSE = 1 TAKE ONE TABLET BY MOUTH DAILY MAXIMUM DAILY DOSE = 1 SOLD: 07/18/2020 [facility] 100 mg 03/22/2020 12:00:00 AM EDT tablet 30 TAKE ONE TABLET BY MOUTH EVERY DAY TAKE ONE TABLET BY MOUTH EVERY DAY SOLD: 05/02/2020 [facility] 100 mg 03/22/2020 12:00:00 AM EDT tablet 30 TAKE ONE TABLET BY MOUTH EVERY DAY TAKE ONE TABLET BY MOUTH EVERY DAY SOLD: 06/03/2020 [facility] 100 mg 03/22/2020 12:00:00 AM EDT tablet 30 TAKE ONE TABLET BY MOUTH EVERY DAY TAKE ONE TABLET BY MOUTH EVERY DAY SOLD: 03/24/2020 [facility] 10 mg 03/14/2020 12:00:00 AM EDT tablet 30 TAKE ONE TABLET BY MOUTH EVERY DAY TAKE ONE TABLET BY MOUTH EVERY DAY SOLD: 03/15/2020 [facility] 10 mg 03/14/2020 12:00:00 AM EDT tablet 30 TAKE ONE TABLET BY MOUTH EVERY DAY TAKE ONE TABLET BY MOUTH EVERY DAY SOLD: 04/21/2020 [facility] 10 mg 03/14/2020 12:00:00 AM EDT tablet 30 TAKE ONE TABLET BY MOUTH EVERY DAY TAKE ONE TABLET BY MOUTH EVERY DAY SOLD: 05/20/2020 [facility] 175 mcg 03/05/2020 12:00:00 AM EDT tablet 30 TAKE ONE TABLET BY MOUTH EVERY DAY TAKE ONE TABLET BY MOUTH EVERY DAY SOLD: 03/05/2020 [facility] 175 mcg 03/05/2020 12:00:00 AM EDT tablet 30 TAKE ONE TABLET BY MOUTH EVERY DAY TAKE ONE TABLET BY MOUTH EVERY DAY SOLD: 05/06/2020 [facility] 175 mcg 03/05/2020 12:00:00 AM EDT tablet 30 TAKE ONE TABLET BY MOUTH EVERY DAY TAKE ONE TABLET BY MOUTH EVERY DAY SOLD: 04/07/2020 [facility] 10 mg 03/04/2020 12:00:00 AM EDT tablet 30 TAKE ONE TABLET BY MOUTH EVERY DAY TAKE ONE TABLET BY MOUTH EVERY DAY SOLD: 04/29/2020 [facility] 10 mg 03/04/2020 12:00:00 AM EDT tablet 30 TAKE ONE TABLET BY MOUTH EVERY DAY TAKE ONE TABLET BY MOUTH EVERY DAY SOLD: 05/31/2020 [facility] Rosuvastatin calcium 10 MG Oral Tablet ROSUVASTATIN CALCIUM 03/04/2020 12:00:00 AM EDT tablet 30 TAKE ONE TABLET BY MOUTH KATE RY DAY TAKE ONE TABLET BY MOUTH EVERY DAY SOLD: 03/05/2020 [facility] 100 mg 02/22/2020 12:00:00 AM EDT tablet 30 TAKE ONE TABLET BY MOUTH EVERY DAY TAKE ONE TABLET BY MOUTH EVERY DAY SOLD: 02/24/2020 [facility] 500 mg 02/18/2020 12:00:00 AM EDT tablet extended release 24 hr 120 TAKE ONE TABLET BY MOUTH FOUR TIMES A DAY TAKE ONE TABLET BY MOUTH FOUR TIMES A DAY SOLD: 02/19/2020 [facility] Rosuvastatin calcium 10 MG Oral Tablet ROSUVASTATIN CALCIUM 02/06/2020 12:00:00 AM EDT tablet 30 TAKE ONE TABLET BY MOUTH KATE DAY TAKE ONE TABLET BY MOUTH EVERY DAY SOLD: 02/06/2020 [facility] 10 mg 01/12/2020 12:00:00 AM EDT tablet 30 TAKE ONE TABLET BY MOUTH EVERY DAY TAKE ONE TABLET BY MOUTH EVERY DAY SOLD: 02/13/2020 [facility] 10 mg 01/12/2020 12:00:00 AM EDT tablet 30 TAKE ONE TABLET BY MOUTH EVERY DAY TAKE ONE TABLET BY MOUTH EVERY DAY SOLD: 01/16/2020 [facility] 10 mg 01/12/2020 12:00:00 AM EDT tablet 30 TAKE ONE TABLET BY MOUTH EVERY DAY TAKE ONE TABLET BY MOUTH EVERY DAY SOLD: 03/15/2020 [facility] pioglitazone 15 MG Oral Tablet PIOGLITAZONE HCL 12/15/2019 12:00 :00 AM EDT tablet 30 TAKE ONE TABLET BY MOUTH EVERY D AY TAKE ONE TABLET BY MOUTH EVERY DAY SOLD: 12/16/2019 [facility] pioglitazone 15 MG Oral Tablet PIOGLITAZONE HCL 12/15/2019 12:00 :00 AM EDT tablet 30 TAKE ONE TABLET BY MOUTH EVERY D AY TAKE ONE TABLET BY MOUTH EVERY DAY SOLD: 02/01/2020 [facility] 500 mg 12/08/2019 12:00:00 AM EDT tablet extended release 24 hr 120 TAKE FOUR TABLETS BY MOUTH EVERY DAY TAKE FOUR TABLETS BY MOUTH EVERY DAY SOLD: 05/13/2020 [facility] 500 mg 12/08/2019 12:00:00 AM EDT tablet extended release 24 hr 120 TAKE FOUR TABLETS BY MOUTH EVERY DAY TAKE FOUR TABLETS BY MOUTH EVERY DAY SOLD: 06/10/2020 [facility] 10 mg 12/08/2019 12:00:00 AM EDT tablet 30 TAKE ONE TABLET BY MOUTH EVERY DAY TAKE ONE TABLET BY MOUTH EVERY DAY SOLD: 02/19/2020 [facility] 10 mg 12/08/2019 12:00:00 AM EDT tablet 30 TAKE ONE TABLET BY MOUTH EVERY DAY TAKE ONE TABLET BY MOUTH EVERY DAY SOLD: 12/12/2019 [facility] 10 mg 12/08/2019 12:00:00 AM EDT tablet 30 TAKE ONE TABLET BY MOUTH EVERY DAY TAKE ONE TABLET BY MOUTH EVERY DAY SOLD: 01/16/2020 [facility] 500 mg 12/08/2019 12:00:00 AM EDT tablet extended release 24 hr 120 TAKE FOUR TABLETS BY MOUTH EVERY DAY TAKE FOUR TABLETS BY MOUTH EVERY DAY SOLD: 03/15/2020 [facility] 500 mg 12/08/2019 12:00:00 AM EDT tablet extended release 24 hr 120 TAKE FOUR TABLETS BY MOUTH EVERY DAY TAKE FOUR TABLETS BY MOUTH EVERY DAY SOLD: 04/14/2020 [facility] 500 mg 12/08/2019 12:00:00 AM EDT tablet extended release 24 hr 120 TAKE FOUR TABLETS BY MOUTH EVERY DAY TAKE FOUR TABLETS BY MOUTH EVERY DAY SOLD: 01/29/2020 [facility] 500 mg 12/08/2019 12:00:00 AM EDT tablet extended release 24 hr 120 TAKE FOUR TABLETS BY MOUTH EVERY DAY TAKE FOUR TABLETS BY MOUTH EVERY DAY SOLD: 12/12/2019 [facility] 1 mg/dose (2 mg/1.5 mL) 12/06/2019 12:00:00 AM EDT pen injec tor 3 INJECT 1MG WEEKLY UNDER THE SKIN INJECT 1MG WEEKLY UNDER THE SKIN SOLD: 03/05/2020 [facility] 1 mg/dose (2 mg/1.5 mL) 12/06/2019 12:00:00 AM EDT pen injec tor 3 INJECT 1MG WEEKLY UNDER THE SKIN INJECT 1MG WEEKLY UNDER THE SKIN SOLD: 01/23/2020 [facility] 1 mg/dose (2 mg/1.5 mL) 12/06/2019 12:00:00 AM EDT pen injec tor 3 INJECT 1MG WEEKLY UNDER THE SKIN INJECT 1MG WEEKLY UNDER THE SKIN SOLD: 12/12/2019 [facility] 175 mcg 12/02/2019 12:00:00 AM EDT tablet 30 TAKE ONE TABLET BY MOUTH EVERY DAY TAKE ONE TABLET BY MOUTH EVERY DAY SOLD: 01/09/2020 [facility] 175 mcg 12/02/2019 12:00:00 AM EDT tablet 30 TAKE ONE TABLET BY MOUTH EVERY DAY TAKE ONE TABLET BY MOUTH EVERY DAY SOLD: 12/05/2019 [facility] 175 mcg 12/02/2019 12:00:00 AM EDT tablet 30 TAKE ONE TABLET BY MOUTH EVERY DAY TAKE ONE TABLET BY MOUTH EVERY DAY SOLD: 02/06/2020 [facility] 100 mg 11/22/2019 12:00:00 AM EDT tablet 30 TAKE ONE TABLET BY MOUTH EVERY DAY TAKE ONE TABLET BY MOUTH EVERY DAY SOLD: 12/23/2019 [facility] 100 mg 11/22/2019 12:00:00 AM EDT tablet 30 TAKE ONE TABLET BY MOUTH EVERY DAY TAKE ONE TABLET BY MOUTH EVERY DAY SOLD: 01/30/2020 [facility] 100 mg 11/22/2019 12:00:00 AM EDT tablet 30 TAKE ONE TABLET BY MOUTH EVERY DAY TAKE ONE TABLET BY MOUTH EVERY DAY SOLD: 11/22/2019 [facility] 15 mg 11/21/2019 12:00:00 AM EDT tablet 30 TAKE ONE TABLET BY MOUTH EVERY DAY TAKE ONE TABLET BY MOUTH EVERY DAY SOLD: 06/03/2020 [facility] pioglitazone 15 MG Oral Tablet PIOGLITAZONE HCL 11/21/2019 12:00 :00 AM EDT tablet 30 TAKE ONE TABLET BY MOUTH EVERY D AY TAKE ONE TABLET BY MOUTH EVERY DAY SOLD: 01/09/2020 [facility] pioglitazone 15 MG Oral Tablet PIOGLITAZONE HCL 11/21/2019 12:00 :00 AM EDT tablet 30 TAKE ONE TABLET BY MOUTH EVERY D AY TAKE ONE TABLET BY MOUTH EVERY DAY SOLD: 04/07/2020 [facility] pioglitazone 15 MG Oral Tablet PIOGLITAZONE HCL 11/21/2019 12:00 :00 AM EDT tablet 30 TAKE ONE TABLET BY MOUTH EVERY D AY TAKE ONE TABLET BY MOUTH EVERY DAY SOLD: 05/06/2020 [facility] pioglitazone 15 MG Oral Tablet PIOGLITAZONE HCL 11/21/2019 12:00 :00 AM EDT tablet 30 TAKE ONE TABLET BY MOUTH EVERY D AY TAKE ONE TABLET BY MOUTH EVERY DAY SOLD: 03/05/2020 [facility] pioglitazone 15 MG Oral Tablet PIOGLITAZONE HCL 11/21/2019 12:00 :00 AM EDT tablet 30 TAKE ONE TABLET BY MOUTH EVERY D AY TAKE ONE TABLET BY MOUTH EVERY DAY SOLD: 11/22/2019 [facility] 1 mg/dose (2 mg/1.5 mL) 10/18/2019 12:00:00 AM EDT pen injec tor 3 INJECT 1MG WEEKLY UNDER THE SKIN INJECT 1MG WEEKLY UNDER THE SKIN SOLD: 02/13/2020 [facility] 1 mg/dose (2 mg/1.5 mL) 10/18/2019 12:00:00 AM EDT pen injec tor 3 INJECT 1MG WEEKLY UNDER THE SKIN INJECT 1MG WEEKLY UNDER THE SKIN SOLD: 05/09/2020 [facility] 10 mg 10/18/2019 12:00:00 AM EDT tablet 30 TAKE ONE TABLET BY MOUTH EVERY DAY TAKE ONE TABLET BY MOUTH EVERY DAY SOLD: 08/25/2020 [facility] 10 mg 10/18/2019 12:00:00 AM EDT tablet 30 TAKE ONE TABLET BY MOUTH EVERY DAY TAKE ONE TABLET BY MOUTH EVERY DAY SOLD: 10/18/2019 [facility] 1 mg/dose (2 mg/1.5 mL) 10/18/2019 12:00:00 AM EDT pen injec tor 3 INJECT 1MG WEEKLY UNDER THE SKIN INJECT 1MG WEEKLY UNDER THE SKIN SOLD: 01/03/2020 [facility] 1 mg/dose (2 mg/1.5 mL) 10/18/2019 12:00:00 AM EDT pen injec tor 3 INJECT 1MG WEEKLY UNDER THE SKIN INJECT 1MG WEEKLY UNDER THE SKIN SOLD: 10/18/2019 [facility] 1 mg/dose (2 mg/1.5 mL) 10/18/2019 12:00:00 AM EDT pen injec tor 3 INJECT 1MG WEEKLY UNDER THE SKIN INJECT 1MG WEEKLY UNDER THE SKIN SOLD: 11/18/2019 [facility] 10 mg 10/18/2019 12:00:00 AM EDT tablet 30 TAKE ONE TABLET BY MOUTH EVERY DAY TAKE ONE TABLET BY MOUTH EVERY DAY SOLD: 11/18/2019 [facility] 1 mg/dose (2 mg/1.5 mL) 10/18/2019 12:00:00 AM EDT pen injec tor 3 INJECT 1MG WEEKLY UNDER THE SKIN INJECT 1MG WEEKLY UNDER THE SKIN SOLD: 04/07/2020 [facility] 10 mg 10/16/2019 12:00:00 AM EDT tablet 30 TAKE ONE TABLET BY MOUTH EVERY DAY TAKE ONE TABLET BY MOUTH EVERY DAY SOLD: 11/18/2019 [facility] 10 mg 10/16/2019 12:00:00 AM EDT tablet 30 TAKE ONE TABLET BY MOUTH EVERY DAY TAKE ONE TABLET BY MOUTH EVERY DAY SOLD: 10/17/2019 [facility] 10 mg 10/16/2019 12:00:00 AM EDT tablet 30 TAKE ONE TABLET BY MOUTH EVERY DAY TAKE ONE TABLET BY MOUTH EVERY DAY SOLD: 12/16/2019 [facility] 175 mcg 09/28/2019 12:00:00 AM EST tablet 30 TAKE ONE TABLET BY MOUTH EVERY DAY TAKE ONE TABLET BY MOUTH EVERY DAY SOLD: 11/06/2019 [facility] 175 mcg 09/28/2019 12:00:00 AM EST tablet 30 TAKE ONE TABLET BY MOUTH EVERY DAY TAKE ONE TABLET BY MOUTH EVERY DAY SOLD: 10/08/2019 [facility] 10 mg 09/18/2019 12:00:00 AM EST tablet 30 TAKE ONE TABLET BY MOUTH EVERY DAY TAKE ONE TABLET BY MOUTH EVERY DAY SOLD: 11/22/2019 [facility] 10 mg 09/18/2019 12:00:00 AM EST tablet 30 TAKE ONE TABLET BY MOUTH EVERY DAY TAKE ONE TABLET BY MOUTH EVERY DAY SOLD: 09/19/2019 [facility] 10 mg 09/18/2019 12:00:00 AM EST tablet 30 TAKE ONE TABLET BY MOUTH EVERY DAY TAKE ONE TABLET BY MOUTH EVERY DAY SOLD: 10/24/2019 [facility] FLASH GLUCOSE SENSOR 09/05/2019 12:00:00 AM EST kit 6 USE DIRECTED EVERY 14 DAYS USE DIRECTED EVERY 14 DAYS SOLD: 05/09/2020 [facility] FLASH GLUCOSE SENSOR 09/05/2019 12:00:00 AM EST kit 6 USE DIRECTED EVERY 14 DAYS USE DIRECTED EVERY 14 DAYS SOLD: 09/12/2019 [facility] Losartan Potassium 100 MG Oral Tablet LOSARTAN POTASSIUM 12:00:00 AM EST tablet 30 TAKE ONE TABLET BY MOUTH KATE RY DAY TAKE ONE TABLET BY MOUTH EVERY DAY SOLD: 09/19/2019 [facility] 100 mg 08/13/2019 12:00:00 AM EST tablet 30 TAKE ONE TABLET BY MOUTH EVERY DAY TAKE ONE TABLET BY MOUTH EVERY DAY SOLD: 10/24/2019 [facility] 100 mg 08/13/2019 12:00:00 AM EST tablet 30 TAKE ONE TABLET BY MOUTH EVERY DAY TAKE ONE TABLET BY MOUTH EVERY DAY SOLD: 08/14/2019 [facility] 10 mg 07/18/2019 12:00:00 AM EST tablet 30 TAKE ONE TABLET BY MOUTH EVERY DAY TAKE ONE TABLET BY MOUTH EVERY DAY SOLD: 08/22/2019 [facility] 10 mg 07/18/2019 12:00:00 AM EST tablet 30 TAKE ONE TABLET BY MOUTH EVERY DAY TAKE ONE TABLET BY MOUTH EVERY DAY SOLD: 09/19/2019 [facility] 10 mg 07/18/2019 12:00:00 AM EST tablet 30 TAKE ONE TABLET BY MOUTH EVERY DAY TAKE ONE TABLET BY MOUTH EVERY DAY SOLD: 07/18/2019 [facility] 175 [facility] [place] 07/07/2019 12:00:00 AM EST tablet 30 TAKE ONE TABLET BY MOUTH EVERY DAY TAKE ONE TABLET BY MOUTH EVERY DAY SOLD: 09/05/2019 [facility] 10 mg 07/07/2019 12:00:00 AM EST tablet 30 TAKE ONE TABLET BY MOUTH EVERY DAY TAKE ONE TABLET BY MOUTH EVERY DAY SOLD: 09/12/2019 [facility] 175 [facility] [place] 07/07/2019 12:00:00 AM EST tablet 30 TAKE ONE TABLET BY MOUTH EVERY DAY TAKE ONE TABLET BY MOUTH EVERY DAY SOLD: 08/05/2019 [facility] 10 mg 07/07/2019 12:00:00 AM EST tablet 30 TAKE ONE TABLET BY MOUTH EVERY DAY TAKE ONE TABLET BY MOUTH EVERY DAY SOLD: 08/14/2019 [facility] 10 mg 07/07/2019 12:00:00 AM EST tablet 30 TAKE ONE TABLET BY MOUTH EVERY DAY TAKE ONE TABLET BY MOUTH EVERY DAY SOLD: 07/11/2019 [facility] 1 mg/dose (2 mg/1.5 mL) 06/05/2019 12:00:00 AM EDT pen injec tor 3 INJECT 1MG WEEKLY UNDER THE SKIN INJECT 1MG WEEKLY UNDER THE SKIN SOLD: 07/28/2019 [facility] 1 mg/dose (2 mg/1.5 mL) 06/05/2019 12:00:00 AM EDT pen injec tor 3 INJECT 1MG WEEKLY UNDER THE SKIN INJECT 1MG WEEKLY UNDER THE SKIN SOLD: 09/19/2019 [facility] 1 mg/dose (2 mg/1.5 mL) 06/05/2019 12:00:00 AM EDT pen injec tor 3 INJECT 1MG WEEKLY UNDER THE SKIN INJECT 1MG WEEKLY UNDER THE SKIN SOLD: 08/22/2019 [facility] pioglitazone 15 MG Oral Tablet PIOGLITAZONE HCL 05/18/2019 12:00 :00 AM EDT tablet 30 TAKE ONE TABLET BY MOUTH EVERY D AY TAKE ONE TABLET BY MOUTH EVERY DAY SOLD: 09/19/2019 [facility] pioglitazone 15 MG Oral Tablet PIOGLITAZONE HCL 05/18/2019 12:00 :00 AM EDT tablet 30 TAKE ONE TABLET BY MOUTH EVERY D AY TAKE ONE TABLET BY MOUTH EVERY DAY SOLD: 08/24/2019 [facility] pioglitazone 15 MG Oral Tablet PIOGLITAZONE HCL 05/18/2019 12:00 :00 AM EDT tablet 30 TAKE ONE TABLET BY MOUTH EVERY D AY TAKE ONE TABLET BY MOUTH EVERY DAY SOLD: 10/24/2019 [facility] pioglitazone 15 MG Oral Tablet PIOGLITAZONE HCL 05/18/2019 12:00 :00 AM EDT tablet 30 TAKE ONE TABLET BY MOUTH EVERY D AY TAKE ONE TABLET BY MOUTH EVERY DAY SOLD: 07/22/2019 [facility] 500 mg 04/23/2019 12:00:00 AM EDT tablet extended release 24 hr 120 TAKE ONE TABLET BY MOUTH FOUR TIMES A DAY TAKE ONE TABLET BY MOUTH FOUR TIMES A DAY SOLD: 08/22/2019 [facility] 10 mg 04/23/2019 12:00:00 AM EDT tablet 30 TAKE ONE TABLET BY MOUTH EVERY DAY TAKE ONE TABLET BY MOUTH EVERY DAY SOLD: 08/14/2019 [facility] 500 mg 04/23/2019 12:00:00 AM EDT tablet extended release 24 hr 120 TAKE ONE TABLET BY MOUTH FOUR TIMES A DAY TAKE ONE TABLET BY MOUTH FOUR TIMES A DAY SOLD: 10/18/2019 [facility] 500 mg 04/23/2019 12:00:00 AM EDT tablet extended release 24 hr 120 TAKE ONE TABLET BY MOUTH FOUR TIMES A DAY TAKE ONE TABLET BY MOUTH FOUR TIMES A DAY SOLD: 07/28/2019 [facility] 500 mg 04/23/2019 12:00:00 AM EDT tablet extended release 24 hr 120 TAKE ONE TABLET BY MOUTH FOUR TIMES A DAY TAKE ONE TABLET BY MOUTH FOUR TIMES A DAY SOLD: 09/19/2019 [facility] 500 mg 04/23/2019 12:00:00 AM EDT tablet extended release 24 hr 120 TAKE ONE TABLET BY MOUTH FOUR TIMES A DAY TAKE ONE TABLET BY MOUTH FOUR TIMES A DAY SOLD: 11/18/2019 [facility] 500 mg 04/23/2019 12:00:00 AM EDT tablet extended release 24 hr 120 TAKE ONE TABLET BY MOUTH FOUR TIMES A DAY TAKE ONE TABLET BY MOUTH FOUR TIMES A DAY SOLD: 01/03/2020 [facility] 10 mg 12/27/2018 12:00:00 AM EDT tablet 30 TAKE ONE TABLET BY MOUTH EVERY DAY TAKE ONE TABLET BY MOUTH EVERY DAY SOLD: 12/23/2019 [facility] Insurance Providers Payer name Policy type / Coverage type Policy ID Covered republican ID Covered republican's relationship to engel Policy Engel Plan Information AETNA [id number] SP [id number] [employer] HEALTH [employer] ZAVALAL O [id number] S [id number] [place] Self Insd Workers Compensation [id number] Self [id number] Aetna (pr) Medigap Part B [id number] Self [id number] [employer] (WC) Workers Compensation [id number] Self [id number] A[employer]na (pr) Commercial [id number] Self [id number] [place] Self Insd Workers Compensation [id number] Self [id number] [employer] (pr) Medigap Part B [id number] Self [id number] [employer] (WC) Workers Compensation [id number] Self [id number] [place] [employer]UR[employer] WORKER COMP [id number] SP [id number] [place] [id number] [place] [id number] Aetna (pr) Commercial [id number] Self [id number] [place] [id number] [place] [id number] [place] Self Insd Workers Compensation [id number] Self [id number] [employer]na (pr) Commercial [id number] Self [id number] [place] Self Insd Workers Compensation [id number] Self [id number] Aetna (pr) Commercial [id number] Self [id number] [employer] [place] O [id number] O [id number] [employer] [place] [id number] [place] [id number] RSI MELY O [id number] P [id number] RSI MELY O UNAVAILABLE P UNAVAI LABLE [employer] [place] [id number] P [id number] [employer] [place] [id number] [place] [id number] Problems, Conditions, and Diagnoses Code Display Name Description Problem Type Effective Dates Data Source(s) [id number] Screening for malignant neoplasm of colo n Screening for malignant neoplasm of colon Problem 08/11/2020 12:00:00 AM EST [facility] ([facility] [place]) Surgeries/Procedures Procedure Description Date Indications Data Source(s) Diabetic Foot Exam 06/17/2020 12:00:00 AM EST [facility] ([facility]) Amb Glucose Monitoring Interpretation And Report 03/11 12:00:00 AM EDT [facility] ([facility]) Amb Glucose Monitoring Interpretation And Report 12/03 12:00:00 AM EDT [facility] ([facility]) Amb Glucose Monitoring Interpretation And Report 09/04 12:00:00 AM EST [facility] ([facility]) Results ID Date Data Source [id number] 06/24/2020 12:00:00 AM EST [facility] Name Value Range Interpretation Code Description Data Nya rce(s) Supporting Document(s) SARS-CoV2 Rapid Antigen [facility] This lab was ordered by [facility] and reported by [facility]. ID Date Data Source [id number] 06/17/2020 03:00:00 PM EST [facility] ([facility]) Name Value Range Interpretation Code Description Data Nya rce(s) Supporting Document(s) Microalbumin [Mass/volume] in Urine 491.0 mg/L [facility] ([facility]) Creatinine [Mass/volume] in Urine 48.4 mg/dL [facility] ([facility]) Microalbumin/Creatinine [Mass Ratio] in Urine 1014.4 MCG/MG 0.0-30.0 [facility] ([facility]) THE [employer] STATES THAT MICROALBUMINURIA IS PRESENT IF THE MICROALBUMIN/CREATININE RATIO EXCEEDS 30 MCG/MG. THE THRESHOLD FOR CLINICAL ALBUMINURIA IS REACHED AT 300 MCG/MG. THE CLASSIFICATION OF A PATIENT SHOULD BE BASED UPON AT LEAST 2 OF 3 ABNORMAL RESULTS ON SPECIMENS COLLECTED WITHIN A 3 TO 6 MONTH TIME FRAME. ID Date Data Source [id number] 06/17/2020 02:49:00 PM EST [facility] ([facility]) Name Value Range Interpretation Code Description Data Nya rce(s) Supporting Document(s) Glucose [Mass/volume] in Serum or Plasma 141 [facility] ([facility]) Hemoglobin A1c/Hemoglobin.total in Blood 7.5 [facility] ([facility]) ID Date Data Source [id number] 03/11/2020 03:38:00 PM EDT [facility] ([facility]) Name Value Range Interpretation Code Description Data Nya rce(s) Supporting Document(s) Glucose [Mass/volume] in Serum or Plasma 177 [facility] ([facility]) Hemoglobin A1c/Hemoglobin.total in Blood 7.6 [facility] ([facility]) ID Date Data Source [id number] 03/04/2020 10:30:00 AM EDT [facility] ([facility]) Name Value Range Interpretation Code Description Data Nya rce(s) Supporting Document(s) Prostate specific Ag [Mass/volume] in Serum or Plasma 0.59 ng/mL [facility] ([facility] ) The PSA assay is performed on the Abineta analyzer by LOCI sandwich chemiluminescent immunoassay and should not be compared interchangeably with other methods. It should not be used alone as a screening test or diagnosis for the presence or absence of malignant disease. Predictions of disease recurrence should not be based solely on values obtained from serial patient serum values. Thyrotropin [Units/volume] in Serum or Plasma by Detec tion limit <= 0.05 mIU/L 0.338 uIU/ML 0.358-3.740 [facility] ([facility]) <content>note:<nlbl:demographic_changed> </content>
<content></content> Testosterone [Mass/volume] in Serum or Plasma 500 ng/dL [id number] [facility] ([facility] ) NORMAL RANGES ARE FOR ADULT FEMALES (OVE R 15 YRS) AND MALES (OVER 19 YRS). FOR PEDIATRIC RANGES PLE ASE CONSULT LITERATURE. Calcidiol [Mass/volume] in Serum or Plasma 15.7 ng/mL 30.0-100.0 [facility] ([facility] ) <content>note:<nlbl:demographic_changed> </content>
<content></content> ID Date Data Source [id number] 03/04/2020 10:30:00 AM EDT [facility] ([facility]) Name Value Range Interpretation Code Description Data Nya rce(s) Supporting Document(s) Cholesterol Level Laboratory test result [facility] ([facility]) Triglycerides Level Laboratory test result [facility] ([facility]) Non-HDL-C Laboratory test result [facility] ([facility]) LDL Cholesterol Laboratory test result [facility] ([facility]) HDL Cholesterol Laboratory test result [facility] ([facility]) Cholesterol Risk Ratio Laboratory test result [facility] ([facility]) ID Date Data Source [id number] 03/04/2020 10:30:00 AM EDT [facility] ([facility]) Name Value Range Interpretation Code Description Data Nya rce(s) Supporting Document(s) Creatinine For GFR 1.00 mg/dL 0.70-1.30 [facility] ([facility]) Blood Urea Nitrogen 28 mg/dL 7-18 [facility] ([facility]) Glucose, Fasting 127 mg/dL 70-100 [facility] ([facility] ) Potassium Serum 5.0 meq/L 3.5-5.1 [facility] ([facility] ) Glomerular Filtration Rate Laboratory test result [facility] ([facility] ) <content>Units are mL/min/1.73 m2</content>
<content></content>
<content>Chronic Kidney Disease Staging per NKF:</content>
<content></content>
<content>Stage I & II GFR >=60 Normal to Mildly Decreased</content>
<content>Stage III GFR 30- 59 Moderately Decreased</content>
<content>Stage IV GFR 15-29 Severely Decreased</content>
<content>Stage V GFR <15 Very Little GFR Left</content>
<content>ESRD GFR <15 on EARLY CHILDHOOD DIRECTOR</content>
<content></content> Sodium Level 141 meq/L 136-145 [facility] ([facility]) Chloride Level 107 meq/L 98-107 [facility] ([facility]) Anion Gap 5 meq/L 8-16 [facility] ([facility]) Carbon Dioxide Level 29 meq/L 21-32 [facility] ([facility]) Calcium Level 9.6 mg/dL 8.5-10.1 [facility] ([facility]) Ast/Sgot 18 U/L 7-37 [facility] ([facility]) Alt/SGPT 35 U/L 12-78 [facility] ([facility]) Total Protein 7.0 GM/DL 6.4-8.2 [facility] ([facility]) Alkaline Phosphatase 71 U/L 45-117 [facility] ([facility]) Bilirubin,Total 0.2 mg/dL 0.2-1.0 [facility] ([facility] ) Albumin 3.5 GM/DL 3.2-5.2 [facility] ([facility]) Albumin/Globulin Ratio 1.0 [facility] ([facility]) ID Date Data Source [id number] 03/04/2020 10:30:00 AM EDT [facility] ([facility]) Name Value Range Interpretation Code Description Data Nya rce(s) Supporting Document(s) Estimated Average Glucose Laboratory test result 60-110 [facility] ([facility]) Hemoglobin A1c Laboratory test result [facility] ([facility]) DOWNTIME - NOT PERFORMED ID Date Data Source [id number] 03/04/2020 10:30:00 AM EDT [facility] ([facility]) Name Value Range Interpretation Code Description Data Nya rce(s) Supporting Document(s) White Blood Count 7.2 10 4.0-10.0 [facility] ([facility]) Hemoglobin 15.2 g/dL 13.5-17.5 [facility] ([facility]) Hematocrit 46.6 % 42.0-52.0 [facility] ([facility]) Red Blood Count 5.28 10 4.30-6.10 [facility] ([facility]) Mean Corpuscular Volume 88.3 fl 80.0-96.0 M [facility] ([facility]) Mean Corpuscular Hemoglobin 28.8 pg 27.0-33.0 [facility] ([facility]) Mean Corpuscular HGB Conc 32.6 g/dL 32.0-36.5 [facility] ([facility]) Nucleated Red Blood Cell % 0.0 % 0-0 [facility] ([facility]) Platelet Count, Automated 274 10 150-450 [facility] ([facility]) Red Cell Distribution Width 13.3 % 11.5-14.5 [facility] ([facility]) ID Date Data Source [id number] 03/04/2020 10:30:00 AM EDT [facility] ([facility]) Name Value Range Interpretation Code Description Data Nya rce(s) Supporting Document(s) Microalbumin [Mass/volume] in Urine 986.0 mg/L [facility] ([facility]) Creatinine [Mass/volume] in Urine Laboratory test result [facility] ([facility]) Microalbumin/Creatinine [Mass Ratio] in Urine Laboratory test resul t 0.0-30.0 [facility] ([facility]) ID Date Data Source [id number] 12/04/2019 03:13:00 PM EDT [facility] ([facility]) Name Value Range Interpretation Code Description Data Nya rce(s) Supporting Document(s) Hemoglobin A1c/Hemoglobin.total in Blood 7.4 [facility] ([facility] ) Glucose [Mass/volume] in Serum or Plasma 114 [facility] ([facility] ) ID Date Data Source [id number] 09/04/2019 02:08:00 PM EST [facility] ([facility]) Name Value Range Interpretation Code Description Data Nya rce(s) Supporting Document(s) Hemoglobin A1c/Hemoglobin.total in Blood 8.0 [facility] ([facility] ) Glucose [Mass/volume] in Serum or Plasma 167 [facility] ([facility]) Procedure Social History Code Duration Value Status Description Data Source(s ) Smoking 03/11/2020 12:00:00 AM EDT Patient has never smoked co mpleted Patient has never smoked [facility] ([facility] ) Vital Signs ID Date Data Source [id number] Name Value Range Interpretation Code Description Data Source(s) Body temperature 97.3 [degF] 97.3 [degF] [facility] ([facility]) Body weight 88.906 kg 88.906 kg [facility] Body mass index (BMI) [Ratio] 28.9 kg/m2 28.9 k g/m2 [facility] ([facility]) Heart rate 58 /min 58 /min [facility]) Diastolic blood pressure 87 mm[Hg] 87 mm[Hg] [facility] ([facility]) Systolic blood pressure 126 mm[Hg] 126 mm[Hg] M [facility] ([facility]) Body weight 196.00 [lb_av] 196.00 [lb_av] [facility] ([facility]) Body height 69 [in_i] 69 [in_i] [facility]) 5'9" Oxygen saturation in Arterial blood by Pulse oximetry 99 % 99 % [facility] ([facility] Body mass index (BMI) [Ratio] 28.9 kg/m2 28.9 k g/m2 [facility] ([facility] Body weight 195.00 [lb_av] 195.00 [lb_av] [facility] ([facility] Body height 68.9 [in_i] 68.9 [in_i] [facility] ([facility]) 5'8.90" Body temperature 97.1 [degF] 97.1 [degF] [facility] ([facility]) Heart rate 80 /min 80 /min [facility] ([facility]) Diastolic blood pressure 70 mm[Hg] 70 mm[Hg] [facility] ([facility]) Systolic blood pressure 126 mm[Hg] 126 mm[Hg] M [facility] ([facility]) Oxygen saturation in Arterial blood by Pulse oximetry 97 % 97 % [facility] ([facility]) Body mass index (BMI) [Ratio] 28.5 kg/m2 28.5 k g/m2 [facility] ([facility]) Body weight 192.12 [lb_av] 192.12 [lb_av] [facility] ([facility]) Body height 68.9 [in_i] 68.9 [in_i] [facility] ([facility]) 5'8.90" Heart rate 85 /min 85 /min [facility] ([facility]) Diastolic blood pressure 80 mm[Hg] 80 mm[Hg] [facility] ([facility]) Systolic blood pressure 132 mm[Hg] 132 mm[Hg] M [facility] ([facility]) Body mass index (BMI) [Ratio] 27.6 kg/m2 27.6 k g/m2 [facility] ([facility]) Body weight 186.12 [lb_av] 186.12 [lb_av] [facility] ([facility]) Body height 68.9 [in_i] 68.9 [in_i] [facility] ([facility]) 5'8.90" Body temperature 98.1 [degF] 98.1 [degF] [facility] ([facility]) Oxygen saturation in Arterial blood by Pulse oximetry 92 % 92 % [facility] ([facility]) Body mass index (BMI) [Ratio] 26.8 kg/m2 26.8 k g/m2 [facility] ([facility]) Body weight 181.25 [lb_av] 181.25 [lb_av] [facility] ([facility]) Body height 68.9 [in_i] 68.9 [in_i] [facility] ([facility]) 5'8.90" Heart rate 73 /min 73 /min [facility] ([facility] Diastolic blood pressure 86 mm[Hg] 86 mm[Hg] [facility] ([facility] Systolic blood pressure 146 mm[Hg] 146 mm[Hg] [facility] ([facility]
[2020-09-09] MEDS ORDERED: LIDOCAINE 2% 100MG/5ML SDV (FOR ANES.) As Ordered ONE (07:09)
[2020-09-09] MEDS ORDERED: propofoL 200 MG/20 ML VIAL As Ordered ONE (07:09)
--- NOTE | 2020-09-09 09:01 | ROOR ---
Patient Name: Boris Liz Procedure Date: 09/09/2020 8:25 AM Date of : 1965 Age: 55 Room: [facility] Gender: Male Note Status: Finalized Procedure: Total Colonoscopy to Cecum Indications: Screening for colorectal malignant neoplasm Providers: Chilo Hunter MD Referring MD: SEGUNDO HOOKS MD Requesting Provider: Medicines: Monitored Anesthesia Care Complications: No immediate complications. Procedure: Pre-Anesthesia Assessment: - The heart rate, respiratory rate, oxygen saturations, blood pressure, adequacy of pulmonary ventilation, and response to care were monitored throughout the procedure. The Colonoscope was introduced through the anus and advanced to the cecum, identified by appendiceal orifice and ileocecal valve. The colonoscopy was performed without difficulty. The patient tolerated the procedure well. The quality of the bowel preparation was poor. Findings: The perianal and digital rectal examinations were normal. Non-bleeding internal hemorrhoids were found during retroflexion. The hemorrhoids were small and Grade I (internal hemorrhoids that do not prolapse). A large amount of stool was found in the entire colon, precluding visualization. The exam was otherwise without abnormality on direct and retroflexion views. Impression: - Preparation of the colon was poor. - Non-bleeding internal hemorrhoids. - Stool in the entire examined colon. - The examination was otherwise normal on direct and retroflexion views. - No specimens collected. - The exam was otherwise normal to the cecum. Recommendation: - Patient has a contact number available for emergencies. The signs and symptoms of potential delayed complications were discussed with the patient. Return to normal activities tomorrow. Written discharge instructions were provided to the patient. - High fiber diet. - Discharge patient to home. - Continue present medications. - Repeat colonoscopy in 10 years for screening purposes. - Return to referring physician. - The findings and recommendations were discussed with the patient. Procedure Code(s): --- Professional --- 86858, Colonoscopy, flexible; diagnostic, including collection of specimen(s) by brushing or washing, when performed (separate procedure) Diagnosis Code(s): --- Professional --- Z12.11, Encounter for screening for malignant neoplasm of colon K64.0, First degree hemorrhoids CPT copyright 2019 [employer]. All rights reserved. The codes documented in this report are preliminary and upon staff registered nurse review may be revised to meet current compliance requirements. Chilo Hunter MD Chilo Hunter MD 09/09/2020 9:01:25 AM Electronically signed by Chilo Hunter MD Number of Addenda: 0 Note Initiated On: 09/09/2020 8:25 AM Estimated Blood Loss: Estimated blood loss: none.
[2020-09-09 09:20] VITALS: BP 114/81
[2020-09-09] MEDS ORDERED: NS 1,000 ML IV ONE (09:45)
== END 2020-09-09 09:34 | disposition home or self-care (01) ==
LOC: M OPP 06:42
PROVIDERS: ATTEND Internal Medicine Gastroenterology
DX: Z12.11 Encounter for screening for malignant neoplasm of colon (principal); K64.0 First degree hemorrhoids; I10 Essential (primary) hypertension; E11.9 Type 2 diabetes mellitus without complications; E03.9 Hypothyroidism, unspecified; R12 Heartburn; Z79.84 Long term (current) use of oral hypoglycemic drugs; Z79.899 Other long term (current) drug therapy

== ENCOUNTER → 2020-12-26 | Outpatient (CLI) | payer OTHER ==
[2020-12-26 11:15] LABS: HEMATOCRIT 47.8 % (42.0-52.0); HEMOGLOBIN 15.6 g/dl (13.5-17.5); MEAN CORPUSCULAR HEMOGLOBIN 28.6 pg (27.0-33.0); MEAN CORPUSCULAR HGB CONC 32.6 g/dl (32.0-36.5); MEAN CORPUSCULAR VOLUME 87.5 fl (80.0-96.0); PLATELET COUNT, AUTOMATED 275 10^3/uL (150-450); RED BLOOD COUNT 5.46 10^6/uL (4.30-6.10); WHITE BLOOD COUNT 7.3 10^3/uL (4.0-10.0)
[2020-12-26 12:12] LABS: HEMOGLOBIN A1c 7.2 %
[2020-12-26 12:17] LABS: ALBUMIN 3.7 GM/DL (3.2-5.2); ALT/SGPT 54 U/L (12-78); BILIRUBIN,TOTAL 0.5 MG/DL (0.2-1.0); BLOOD UREA NITROGEN 19 MG/DL (7-18); CALCIUM LEVEL 9.4 MG/DL (8.5-10.1); CARBON DIOXIDE LEVEL 27 MEQ/L (21-32); CHLORIDE LEVEL 104 MEQ/L (98-107); CHOLESTEROL LEVEL 125 MG/DL (<200); CHOLESTEROL RISK RATIO 3.472 (<5); CREATININE FOR GFR 1.08 MG/DL (0.70-1.30); GLOMERULAR FILTRATION RATE > 60.0 (>56); GLUCOSE, FASTING 110 MG/DL (70-100); HDL CHOLESTEROL 36 MG/DL (>40); LDL CHOLESTEROL 59 MG/DL (<100); NON-HDL-C 89 MG/DL; POTASSIUM SERUM 4.7 MEQ/L (3.5-5.1); PROSTATIC SPECIFIC AG MONITOR 0.66 NG/ML (< 4.00); SODIUM LEVEL 139 MEQ/L (136-145); THYROID STIMULATING HORMONE 0.803 uIU/ML (0.358-3.740); TRIGLYCERIDES LEVEL 150 MG/DL (<150)
[2020-12-26 13:41] LABS: TESTOSTERONE 553 NG/DL (241-827)
== END ==
LOC: M LAB 10:14
PROVIDERS: ATTEND Family Medicine
DX: I10 Essential (primary) hypertension (principal)

== ENCOUNTER → 2021-03-30 | Outpatient (REF) | payer OTHER ==
[~2021-03-30] MED LIST changes: +ERGO500029 PO; -VITA50005 PO
[2021-03-30 19:08] LABS: CREATININE, URINE 78.7 MG/DL; MAU/CREAT RATIO 937.7 MCG/MG (0.0-30.0)
== END ==
LOC: M LAB REF 16:45
PROVIDERS: ATTEND Internal Medicine Endocrinology, Diabetes & Metabolism
DX: E11.65 Type 2 diabetes mellitus with hyperglycemia (principal)

== ENCOUNTER → 2021-11-30 | Outpatient (REF) | payer OTHER ==
[~2021-11-30] MED LIST changes: +LOSA100T45 PO; -LOSA100T50 PO
[2021-11-30 19:25] LABS: MAU/CREAT RATIO 980.9 MCG/MG (0.0-30.0)
== END ==
LOC: M LAB REF 16:49
PROVIDERS: ATTEND Internal Medicine Endocrinology, Diabetes & Metabolism
DX: E11.21 Type 2 diabetes mellitus with diabetic nephropathy (principal)

== ENCOUNTER → 2022-10-16 | Outpatient (CLI) | payer OTHER ==
[2022-10-16 10:30] LABS: CREATININE, URINE 86.1 MG/DL
[2022-10-16 10:46] LABS: MAU/CREAT RATIO 1054.5 MCG/MG (0.0-30.0)
== END ==
LOC: M LAB 09:07
PROVIDERS: ATTEND Internal Medicine Endocrinology, Diabetes & Metabolism
DX: E11.65 Type 2 diabetes mellitus with hyperglycemia (principal)

== ENCOUNTER → 2022-10-16 | Outpatient (CLI) | payer OTHER ==
[2022-10-16 10:05] LABS: HEMATOCRIT 44.8 % (42.0-52.0); HEMOGLOBIN 14.7 g/dl (13.5-17.5); MEAN CORPUSCULAR HEMOGLOBIN 29.2 pg (27.0-33.0); MEAN CORPUSCULAR HGB CONC 32.8 g/dl (32.0-36.5); MEAN CORPUSCULAR VOLUME 88.9 fl (80.0-96.0); PLATELET COUNT, AUTOMATED 255 10^3/uL (150-450); RED BLOOD COUNT 5.04 10^6/uL (4.30-6.10); WHITE BLOOD COUNT 7.3 10^3/uL (4.0-10.0)
[2022-10-16 10:52] LABS: ALBUMIN 3.6 G/DL (3.2-5.2); ALKALINE PHOSPHATASE 62 U/L (46-116); ALT/SGPT 23 U/L (7.0-40); AST/SGOT 20 U/L (<34); BILIRUBIN,TOTAL 0.5 MG/DL (0.3-1.2); BLOOD UREA NITROGEN 23 MG/DL (9-23); CALCIUM LEVEL 8.9 MG/DL (8.5-10.1); CARBON DIOXIDE LEVEL 28 MMOL/L (20-31); CHLORIDE LEVEL 105 MMOL/L (98-107); CHOLESTEROL LEVEL 98 MG/DL (<200); CHOLESTEROL RISK RATIO 2.59 (<5); CREATININE FOR GFR 1.11 MG/DL (0.70-1.30); GLOMERULAR FILTRATION RATE > 60.0 (>56); GLUCOSE, FASTING 174 MG/DL (60-100); HDL CHOLESTEROL 37.7 MG/DL (>40); NON-HDL-C 60.3 MG/DL; POTASSIUM SERUM 4.6 MMOL/L (3.5-5.1); PROSTATIC SPECIFIC AG MONITOR 0.53 NG/ML (< 4.00); SODIUM LEVEL 137 MMOL/L (136-145); TESTOSTERONE 376 NG/DL (241-827); THYROID STIMULATING HORMONE 0.329 uIU/ML (0.55-4.78)
[2022-10-16 12:25] LABS: HEMOGLOBIN A1c 7.4 % (4.0-6.0)
[2022-10-16 12:44] LABS: LDL CHOLESTEROL 42.9 MG/DL (<100); TOTAL PROTEIN 6.4 G/DL (5.7-8.2); TRIGLYCERIDES LEVEL 87 MG/DL (<150)
== END ==
LOC: M LAB 09:05
PROVIDERS: ATTEND Family Medicine
DX: I10 Essential (primary) hypertension (principal); R53.83 Other fatigue; E11.9 Type 2 diabetes mellitus without complications

== ENCOUNTER → 2024-03-26 | Outpatient (CLI) | payer OTHER ==
[~2024-03-26] MED LIST changes: +GLIP5TAB17 PO; -LOSA100T45 PO; +LOSA100T46 PO; +LOSA50TA28 PO; +NEBI10TA PO; -ROSU10TA6 PO; +ROSU10TA61 PO; +TIRZ5PEN
[2024-03-26 11:06] LABS: HEMATOCRIT 44.5 % (42.0-52.0); HEMOGLOBIN 14.8 g/dl (13.5-17.5); MEAN CORPUSCULAR HEMOGLOBIN 29.1 pg (27.0-33.0); MEAN CORPUSCULAR HGB CONC 33.3 g/dl (32.0-36.5); MEAN CORPUSCULAR VOLUME 87.6 fl (80.0-96.0); PLATELET COUNT, AUTOMATED 303 10^3/uL (150-450); RED BLOOD COUNT 5.08 10^6/uL (4.30-6.10); WHITE BLOOD COUNT 10.5 10^3/uL (4.0-10.0)
[2024-03-26 11:18] LABS: INR 1.1; PROTHROMBIN TIME 13.9 SECONDS (12.5-14.5)
[2024-03-26 11:33] LABS: ALBUMIN 3.4 G/DL (3.2-5.2); ALKALINE PHOSPHATASE 104 U/L (46-116); ALT/SGPT 31 U/L (7.0-40); AST/SGOT 20 U/L (<34); BILIRUBIN,TOTAL 0.4 MG/DL (0.3-1.2); BLOOD UREA NITROGEN 23 MG/DL (9-23); CALCIUM LEVEL 9.2 MG/DL (8.5-10.1); CARBON DIOXIDE LEVEL 29 MMOL/L (20-31); CHLORIDE LEVEL 102 MMOL/L (98-107); CHOLESTEROL LEVEL 96 MG/DL (<200); CREATININE FOR GFR 1.07 MG/DL (0.70-1.30); GLOMERULAR FILTRATION RATE > 60.0 (>56); GLUCOSE, FASTING 134 MG/DL (60-100); HDL CHOLESTEROL 25.9 MG/DL (>40); LDL CHOLESTEROL 41.1 MG/DL (<100); NON-HDL-C 70.1 MG/DL; POTASSIUM SERUM 4.3 MMOL/L (3.5-5.1); PROSTATIC SPECIFIC AG MONITOR 0.61 NG/ML (< 4.00); SODIUM LEVEL 134 MMOL/L (136-145); TOTAL PROTEIN 7.1 G/DL (5.7-8.2); TRIGLYCERIDES LEVEL 145 MG/DL (<150)
[2024-03-26 11:35] LABS: THYROID STIMULATING HORMONE 0.169 uIU/ML (0.55-4.78)
[2024-03-26 11:36] LABS: TESTOSTERONE 390 NG/DL (241-827)
[2024-03-26 11:40] LABS: HEMOGLOBIN A1c 6.8 % (4.0-6.0)
== END ==
LOC: M RAD 10:10
PROVIDERS: ATTEND Family Medicine
DX: I10 Essential (primary) hypertension (principal); E11.9 Type 2 diabetes mellitus without complications; E03.9 Hypothyroidism, unspecified; R53.83 Other fatigue

== ENCOUNTER 2024-04-09 08:38 | Day surgery (SDC) | payer OTHER ==
[~2024-04-09] VITALS: Ht 175.3 cm; Wt 84.7 kg
[~2024-04-09 08:38] MED LIST changes: -BYST10TA2 PO; +BYST1TAB3 PO; -NEBI10TA PO; +NEBI10TA2 PO; +PHENYLEPHRINE 10% OPHTH SOL 5ML OD PRN; +fentaNYL 100 MCG/2 ML INJECTION As Ordered ONE
[2024-04-09] MEDS: OFLOXACIN 0.3 % (OCUFLOX) OPTH SOL 5ML OD ONE (10:00)
[2024-04-09] MEDS: LIDOCAINE 3.5 % 1ML OPHTH TOPICAL GEL OU ONE (10:00)
[2024-04-09] MEDS: TROPICAMIDE 1% OPHTH SOLN 15ML OD SCH (10:18)
[2024-04-09] MEDS: ATROPINE SULFATE 1% OPHTH SOLN 2ML BTL OD SCH (10:18)
[2024-04-09] MEDS: PHENYLEPHRINE 2.5% OPHTH SOL 2ML OD SCH (10:18)
[2024-04-09] MEDS ORDERED: MIDAZOLAM INJ 2MG/2ML VIAL As Ordered ONE (10:57)
[2024-04-09] MEDS: LIDOCAINE 1% SDV 5ML VIAL As Ordered ONE (10:59)
[2024-04-09] MEDS: BSS IRRIG/VANCO(10MG)/TOBRA(5MG)/EPINEPH(1:1000-0.5CC)500ML BAG-ORONLY As Ordered ONE (10:59)
[2024-04-09] MEDS: CEFUROXIME 1MG/0.1ML INTRACAMERAL INJ As Ordered ONE (11:03)
[2024-04-09 11:10] VITALS: BP 107/62; TEMP 97.5; O2SAT 97
== END 2024-04-09 11:30 | disposition home or self-care (01) ==
LOC: M SDC 08:38
PROVIDERS: ATTEND Ophthalmology
DX: H25.11 Age-related nuclear cataract, right eye (principal); I10 Essential (primary) hypertension; E78.5 Hyperlipidemia, unspecified; E11.9 Type 2 diabetes mellitus without complications; E03.9 Hypothyroidism, unspecified; Z79.84 Long term (current) use of oral hypoglycemic drugs; Z79.899 Other long term (current) drug therapy
CPT/HCPCS: 66984; J0697; J2250; J3010; V2632

== ENCOUNTER 2024-04-16 08:58 | Day surgery (SDC) | payer OTHER ==
[~2024-04-16] VITALS: Ht 175.3 cm; Wt 85.3 kg
[~2024-04-16 08:58] MED LIST changes: +ATROPINE SULFATE 1% OPHTH SOLN 2ML BTL OS SCH; -PHENYLEPHRINE 10% OPHTH SOL 5ML OD PRN; +PHENYLEPHRINE 10% OPHTH SOL 5ML OS PRN; +PHENYLEPHRINE 2.5% OPHTH SOL 2ML OS SCH; +TROPICAMIDE 1% OPHTH SOLN 15ML OS SCH; -fentaNYL 100 MCG/2 ML INJECTION As Ordered ONE
[2024-04-16] MEDS ORDERED: fentaNYL 100 MCG/2 ML INJECTION As Ordered ONE (09:06)
[2024-04-16] MEDS ORDERED: MIDAZOLAM INJ 2MG/2ML VIAL As Ordered ONE (09:06)
[2024-04-16] MEDS: LIDOCAINE 3.5 % 1ML OPHTH TOPICAL GEL OU ONE (10:37)
[2024-04-16] MEDS: OFLOXACIN 0.3 % (OCUFLOX) OPTH SOL 5ML OS ONE (10:37)
[2024-04-16] MEDS ORDERED: GLYCOPYRROLATE INJ 0.2 MG/ML 2 ML VIAL As Ordered ONE (11:27)
[2024-04-16] MEDS: LIDOCAINE 1% SDV 5ML VIAL As Ordered ONE (11:28)
[2024-04-16] MEDS: BSS IRRIG/VANCO(10MG)/TOBRA(5MG)/EPINEPH(1:1000-0.5CC)500ML BAG-ORONLY As Ordered ONE (11:28)
[2024-04-16] MEDS: CEFUROXIME 1MG/0.1ML INTRACAMERAL INJ As Ordered ONE (11:28)
[2024-04-16 11:40] VITALS: BP 105/67; TEMP 97.2; O2SAT 98
== END 2024-04-16 11:55 | disposition home or self-care (01) ==
LOC: M SDC 08:58
PROVIDERS: ATTEND Ophthalmology
DX: E11.36 Type 2 diabetes mellitus with diabetic cataract (principal); H25.12 Age-related nuclear cataract, left eye; I10 Essential (primary) hypertension; E03.9 Hypothyroidism, unspecified; E78.00 Pure hypercholesterolemia, unspecified; Z79.890 Hormone replacement therapy; Z79.899 Other long term (current) drug therapy; Z79.84 Long term (current) use of oral hypoglycemic drugs
CPT/HCPCS: 66984; J0697; J1596; J2250; J3010; V2632

== ENCOUNTER → 2024-05-01 | Outpatient (CLI) | payer OTHER ==
[~2024-05-01] MED LIST changes: -ATROPINE SULFATE 1% OPHTH SOLN 2ML BTL OS SCH; -PHENYLEPHRINE 10% OPHTH SOL 5ML OS PRN; -PHENYLEPHRINE 2.5% OPHTH SOL 2ML OS SCH; -TROPICAMIDE 1% OPHTH SOLN 15ML OS SCH
[2024-05-01 11:26] LABS: CREATININE, URINE 95.2 MG/DL
[2024-05-01 11:37] LABS: MAU/CREAT RATIO 429.6 MCG/MG (0.0-30.0)
== END ==
LOC: M LAB 10:11
PROVIDERS: ATTEND Internal Medicine Endocrinology, Diabetes & Metabolism
DX: E11.65 Type 2 diabetes mellitus with hyperglycemia (principal)

== ENCOUNTER → 2024-07-06 | Outpatient (CLI) | payer OTHER ==
[2024-07-06 12:47] LABS: THYROID STIMULATING HORMONE 2.616 uIU/ML (0.55-4.78); THYROXINE (T4) 12.9 UG/DL (4.5-10.9)
[2024-07-06 12:51] LABS: TOTAL T3 91.6 NG/DL (60.0-181.0)
== END ==
LOC: M LAB 11:26
PROVIDERS: ATTEND Family Medicine
DX: E03.9 Hypothyroidism, unspecified (principal)

== ENCOUNTER → 2024-12-14 | Outpatient (CLI) | payer OTHER ==
[2024-12-14 09:38] LABS: BASO % 0.5 % (0.0-1.0); EOS # 0.2 10^3/uL (0.0-0.5); HEMATOCRIT 44.5 % (42.0-52.0); HEMOGLOBIN 15.1 g/dl (13.5-17.5); LYMPH # 1.2 10^3/uL (1.5-5.0); LYMPH % 16.4 % (24.0-44.0); MEAN CORPUSCULAR HEMOGLOBIN 29.5 pg (27.0-33.0); MEAN CORPUSCULAR HGB CONC 33.9 g/dl (32.0-36.5); MEAN CORPUSCULAR VOLUME 87.1 fl (80.0-96.0); MONO # 0.6 10^3/uL (0.0-0.8); MONO % 7.9 % (2.0-8.0); NEUTROPHILS # 5.4 10^3/uL (1.5-8.5); NEUTROPHILS % 71.9 % (36.0-66.0); PLATELET COUNT, AUTOMATED 223 10^3/uL (150-450); RED BLOOD COUNT 5.11 10^6/uL (4.30-6.10); WHITE BLOOD COUNT 7.6 10^3/uL (4.0-10.0)
[2024-12-14 10:11] LABS: THYROID STIMULATING HORMONE 1.057 uIU/ML (0.55-4.78)
[2024-12-14 10:12] LABS: ALBUMIN 3.5 G/DL (3.2-5.2); BILIRUBIN,TOTAL 0.4 MG/DL (0.3-1.2); CALCIUM LEVEL 9.3 MG/DL (8.5-10.1); CHOLESTEROL RISK RATIO 3.27 (<5); CREATININE FOR GFR 1.02 MG/DL (0.70-1.30); FREE T4 1.79 NG/DL (0.89-1.76); GLOMERULAR FILTRATION RATE 85.7 (>56); HDL CHOLESTEROL 35.4 MG/DL (>40); LDL CHOLESTEROL 53.6 MG/DL (<100); NON-HDL-C 80.6 MG/DL; POTASSIUM SERUM 4.5 MMOL/L (3.5-5.1); TOTAL PROTEIN 6.7 G/DL (5.7-8.2)
== END ==
LOC: M LAB 09:11
PROVIDERS: ATTEND Registered Nurse
DX: E78.2 Mixed hyperlipidemia (principal); E03.9 Hypothyroidism, unspecified; I10 Essential (primary) hypertension